=== PATIENT | male | born 1960 | race Caucasian/White ===

== ENCOUNTER 2017-06-06 12:21 | Observation (INO) | payer OTHER, MEDICAID ==
[2017-06-06] VITALS (7 sets, daily range): BP systolic 134–141; BP diastolic 75–86; PULSE 84–96; RESP 16–18; TEMP 98–98.2; O2SAT 95–99
[~2017-06-06 12:21] MED LIST changes: -FLUT1INH7 INH; -METH40TA PO; -PRED10 PO
[2017-06-06] MEDS ORDERED: METH40TA PO (12:48)
[2017-06-06] MEDS ORDERED: FLUT1INH7 INH (12:48)
[2017-06-06] MEDS ORDERED: PRED10 PO (12:48)
[2017-06-06] MEDS ORDERED: AZAT50 PO (12:48)
[2017-06-06 13:06] LABS: AUTOMATED NEUTROPHIL # 16.8 TH/MM3 (1.8-7.7); BASOPHIL % 0.2 % (0.0-2.0); EOSINOPHIL % 0.1 % (0.0-4.0); HEMOGLOBIN 14.5 GM/DL (13.0-17.0); LYMPH % 1.3 % (9.0-44.0); LYMPHOCYTE # 0.2 TH/MM3 (1.0-4.8); MEAN CELL VOLUME 89.9 FL (80.0-100.0); MEAN CORPUSCULAR HGB CONC 34.5 % (32.0-36.0); MEAN PLATELET VOLUME 9.2 FL (7.0-11.0); MONO % 6.5 % (0.0-8.0); MONOCYTE # 1.2 TH/MM3 (0-0.9); NEUT % 91.9 % (16.0-70.0); PLATELET COUNT 258 TH/MM3 (150-450); RED BLOOD COUNT 4.67 MIL/MM3 (4.50-5.90); RED CELL DISTRIBUTION WIDTH 14.1 % (11.6-17.2); WHITE BLOOD COUNT 18.3 TH/MM3 (4.0-11.0)
--- NOTE | 2017-06-06 13:20 | PD ---
HPI Chief Complaint: Medical Clearance Time Seen by Provider: 12:48 Travel History International Travel<30 days: No Contact w/Intl Traveler<30days: No Traveled to known affect area: No History of Present Illness HPI This is a 57-year-old male with a history of myasthenia gravis who presents today after he failed a outpatient swallowing study. The patient states that since last , he's been having difficulty swallowing. He states he saw his primary care physician who ordered a swallowing study at [facility]. He reports when he showed up there they sent him here for the study. The patient was unable to pass 2 of the swallowing studies and sent here for admission. The patient states that he was told he had aspirated. He states he' s had a cough and has not been feeling well. There's been no reported fevers, chills. There are no other complaints time my examination. PFSH Past Medical History Asthma: Yes Heart Rhythm Problems: No Cancer: No Cardiac Catheterization: No Cardiovascular Problems: Yes High Cholesterol: Yes Congestive Heart Failure: No COPD: Yes Cerebrovascular Accident: No Diabetes: No Diminished Hearing: Yes (BILATERAL) Genitourinary: No Headaches: No Heparin Induced Thrombocytopen: No Hypertension: Yes Immune Disorder: Yes (Myasthenia Gravis) Musculoskeletal: No Neurologic: Yes (MyAsthenia Gravis) Psychiatric: No Reproductive: No Respiratory: Yes (ASTHMA) Immunizations Current: Yes Migraines: No Seizures: No Past Surgical History Abdominal Surgery: Yes (COLOSTOMY AND REVERSAL ,hernia) Cardiac Surgery: No Coronary Artery Bypass Graft: No Ear Surgery: No Endocrine Surgery: No Eye Surgery: No Genitourinary Surgery: No Gynecologic Surgery: No Oral Surgery: No Thoracic Surgery: Yes (bronchoscopy) Tonsillectomy: Yes Other Surgery: Yes (UMBILICAL HERNIA REPAIR) Social History Alcohol Use: Yes (OCCASSIONALLY) Tobacco Use: No Substance Use: No Allergies-Medications (Allergen,Severity, Reaction): Coded Allergies: No Known Allergies (Verified Allergy, Unknown, 06/06/17) Reported Meds & Prescriptions Reported Meds & Active Scripts Active Reported Azathioprine 50 Mg Tab 50 Mg PO BID Hazardous agent use appropriate precautions for handling and disposal. Breo Ellipta Inh (Fluticasone/Vilanterol) 200-25 Mcg/Act Inh 1 Puff INH DAILY Use daily at the same time. Prednisone 10 Mg Tab 10 Mg PO BID Methadone (Methadone HCl) 40 Mg Tab 60 Mg PO TID Review of Systems Except as stated in HPI: all other systems reviewed are Neg General / Constitutional: No: Fever, Chills HENT: No: Headaches, Neck Pain Cardiovascular: No: Chest Pain or Discomfort, Palpitations Respiratory: Positive: Cough, No: Shortness of Breath, Wheezing Gastrointestinal: Positive: Dysphagia ( eating secondary to not swallowing well ), Other (difficulty), No: Nausea, Vomiting, Abdominal Pain Genitourinary: No: Frequency, Dysuria Musculoskeletal: Positive: Weakness, No: Pain Neurologic: Positive: Weakness (generalized), No: Headache, Change in Mentation Physical Exam Narrative GENERAL: Well developed well-nourished male in no acute respiratory distress. SKIN: Focused skin assessment warm/dry. HEAD: Atraumatic. Normocephalic. EYES: No scleral icterus. No injection or drainage. ENT: No nasal bleeding or discharge. Mucous membranes pink and moist. NECK: Trachea midline. Supple. CARDIOVASCULAR: Regular rate and rhythm. No murmur appreciated. RESPIRATORY: Coarse rhonchi in the bilateral lung carrillo. No obvious Rales appreciated. GASTROINTESTINAL: Abdomen soft, non-tender, nondistended. MUSCULOSKELETAL: No obvious deformities. No clubbing. No cyanosis. No edema. NEUROLOGICAL: Awake and alert. No obvious cranial nerve deficits. Motor grossly equal and within normal limits. Slurred speech secondary to his myasthenia gravis. Data Data Last Documented VS Vital Signs Date Time Temp Pulse Resp B/P (MAP) Pulse Ox O2 Delivery O2 Flow Rate FiO2 06/06/17 13:02 (96) 98 06/06/17 12:25 98.2 84 16 Orders Orders Complete Blood Count With Diff (06/06/17 12:48) Comprehensive Metabolic Panel (06/06/17 12:48) Urinalysis - C+S If Indicated (06/06/17 12:48) Chest, Pa & Lat (06/06/17 12:48) Iv Access Insert/Monitor (06/06/17 12:48) Ecg Monitoring (06/06/17 12:48) Oximetry (06/06/17 12:48) D5-1/2 Ns + Kcl 20 Meq Inj (D5-1/2 Ns + (06/06/17 15:15) Place In Observation (06/06/17 ) Vital Signs (Adult) Q4H (06/06/17 16:40) Activity Bed Rest With Brp (06/06/17 16:40) Bedside Glucose CHAD.CSUGAR (06/06/17 16:40) Appliance Tester / Telemetry .CONTINUOUS (06/06/17 16:40) Intake + Output CHAD.QSHIFT (06/06/17 16:40) Notify Dr: Other (06/06/17 16:40) Diet Npo (06/06/17 Dinner) Sodium Chlor 0.9% 1000 Ml Inj (Ns 1000 M (06/06/17 16:40) Sodium Chloride 0.9% Flush (Ns Flush) (06/06/17 16:45) Sodium Chloride 0.9% Flush (Ns Flush) (06/06/17 21:00) Acetaminophen (Tylenol) (06/06/17 16:45) Ondansetron Inj (Zofran Inj) (06/06/17 16:45) Basic Metabolic Panel (Bmp) (06/07/17 06:00) Complete Blood Count With Diff (06/07/17 06:00) Resp Oxygen Master C Titrat 1-4 L (06/06/17 ) Speech Therapy Consult-Eval/Tx (06/06/17 16:40) Case Management Consult (06/06/17 16:40) Heparin Inj (Heparin Inj) (06/06/17 18:00) Scd Bilateral/Knee High CHAD.BID (06/06/17 16:40) Naloxone Inj (Narcan Inj) (06/06/17 16:45) Docusate Sodium-Senna (Hawa-Colace) (06/06/17 21:00) Magnesium Hydroxide Liq (Milk Of Magnesi (06/06/17 16:45) Sennosides (Senokot) (06/06/17 16:45) Bisacodyl Supp (Dulcolax Supp) (06/06/17 16:45) Lactulose Liq (Lactulose Liq) (06/06/17 16:45) Consult Neurology (06/06/17 ) Methylprednisolone So Succ Inj (Solumedr (06/06/17 22:00) Azathioprine (Imuran) (06/06/17 21:00) Fluticasone-Vilant 200-25 Inh (Breo Anjana (06/07/17 09:00) (Hub Use Only)Inp Phy Cons/Ref (06/06/17 ) Labs Laboratory Tests Test 06/06/17 13:00 White Blood Count 18.3 TH/MM3 Red Blood Count 4.67 MIL/MM3 Hemoglobin 14.5 GM/DL Hematocrit 42.0 % Mean Corpuscular Volume 89.9 FL Mean Corpuscular Hemoglobin 31.0 PG Mean Corpuscular Hemoglobin Concent 34.5 % Red Cell Distribution Width 14.1 % Platelet Count 258 TH/MM3 Mean Platelet Volume 9.2 FL Neutrophils (%) (Auto) 91.9 % Lymphocytes (%) (Auto) 1.3 % Monocytes (%) (Auto) 6.5 % Eosinophils (%) (Auto) 0.1 % Basophils (%) (Auto) 0.2 % Neutrophils # (Auto) 16.8 TH/MM3 Lymphocytes # (Auto) 0.2 TH/MM3 Monocytes # (Auto) 1.2 TH/MM3 Eosinophils # (Auto) 0.0 TH/MM3 Basophils # (Auto) 0.0 TH/MM3 CBC Comment DIFF FINAL Differential Comment Blood Urea Nitrogen 15 MG/DL Creatinine 0.73 MG/DL Random Glucose 98 MG/DL Total Protein 7.4 GM/DL Albumin 3.6 GM/DL Calcium Level 9.2 MG/DL Alkaline Phosphatase 52 U/L Aspartate Amino Transf (AST/SGOT) 35 U/L Alanine Aminotransferase (ALT/SGPT) 43 U/L Total Bilirubin 0.9 MG/DL Sodium Level 141 MEQ/L Potassium Level 4.1 MEQ/L Chloride Level 107 MEQ/L Carbon Dioxide Level 28.9 MEQ/L Anion Gap 5 MEQ/L Estimat Glomerular Filtration Rate 110 ML/MIN [facility] Medical Decision Making Medical Screen Exam Complete: Yes Emergency Medical Condition: Yes Differential Diagnosis Aspiration pneumonia versus metabolic derangement versus exacerbation of myasthenia gravis Narrative Course 57-year-old male presents today with complaints of cough and congestion. The patient had an outpatient swallowing study that showed aspiration. The patient has myasthenia gravis. He states she's not been able to eat secondary to dysphagia for the last 5 days. There is no reported fevers, chills. There is cough and congestion. The patient has an elevated white blood cell count of above 18,000. Chest x-ray shows some nonspecific changes that could be consistent with aspiration. At this point I will not start him on antibiotics as if this is aspiration, it is likely secondary multi-organism etiology. Case was discussed with Dr. Pantoja, [facility] to see the patient and admit the patient to the service. Diagnosis Primary Impression: probable aspiration pneumonia Additional Impressions: leukocytosis with left shift Myasthenia gravis Dysphagia Admitting Information Admitting Physician Requests: Admit Carlos Colón MD Jun 06, 2017 13:20
[2017-06-06 13:37] LABS: ALKALINE PHOSPHATASE 52 U/L (45-117); ALT (GPT) 43 U/L (12-78); TOTAL BILIRUBIN ADULT 0.9 MG/DL (0.2-1.0); TOTAL PROTEIN 7.4 GM/DL (6.4-8.2)
[2017-06-06 13:42] LABS: ALBUMIN 3.6 GM/DL (3.4-5.0); AST (GOT) 35 U/L (15-37); BICARBONATE 28.9 MEQ/L (21.0-32.0); BLOOD UREA NITROGEN 15 MG/DL (7-18); CALCIUM 9.2 MG/DL (8.5-10.1); CHLORIDE 107 MEQ/L (98-107); CREATININE 0.73 MG/DL (0.60-1.30); GLOMERULAR FILTRATION RATE 110 ML/MIN (>89); GLUCOSE,RANDOM 98 MG/DL (74-106); SODIUM (NA) 141 MEQ/L (136-145)
[2017-06-06] MEDS ORDERED: D5-1/2 NS + KCL 20 MEQ INJ 1,000 ML IV SCH (15:15)
--- NOTE | 2017-06-06 15:55 | RADRPT ---
EXAM DATE/TIME: 06/06/2017 13:42 [facility] COMPARISON: CHEST SINGLE AP, February 26, 2016, 14:57. INDICATIONS : Evaluate lungs post aspiration of barium during modifed barium swallow performed earlier today MEDICAL HISTORY : Hypertension. Chronic obstructive pulmonary disease. SURGICAL HISTORY : Tonsillectomy. ENCOUNTER: Initial ACUITY: 1 day PAIN SCORE: Non-responsive. LOCATION: Bilateral chest FINDINGS: The heart is moderately enlarged. Mild central vascular engorgement is noted. There is no evidence of high density material in the lungs. There are no consolidating airspace lang es or significant congestion. CONCLUSION: No evidence of significant congestion or consolidating airspace disease. Cardiomegaly with mild chronic vascular prominence. Fox Ernandez MD on June 06, 2017 at 15:51 Board Certified Radiologist. This report was verified electronically.
[2017-06-06] MEDS ORDERED: SODIUM CHLOR 0.9% 1000 ML INJ 1,000 ML IV SCH (16:40)
[2017-06-06] MEDS ORDERED: NALOXONE HCL 0.4 MG/ML AMP IV PUSH PRN (16:45)
[2017-06-06] MEDS ORDERED: SODIUM CHLORIDE 0.9% FLUSH 10 ML FLUSH IV FLUSH PRN (16:45)
[2017-06-06] MEDS ORDERED: BISACODYL 10 MG SUPP RECTAL PRN (16:45)
[2017-06-06] MEDS ORDERED: ONDANSETRON HCL 4 MG/2 ML VIAL IVP PRN (16:45)
[2017-06-06] MEDS ORDERED: SENNOSIDES 8.6 MG TAB PO PRN (16:45)
[2017-06-06] MEDS ORDERED: LACTULOSE SYRUP 20 GM/30 ML CUP PO PRN (16:45)
[2017-06-06] MEDS ORDERED: MAGNESIUM HYDROXIDE SUSP 30 ML CUP PO PRN (16:45)
--- NOTE | 2017-06-06 18:23 | HHI.HP ---
HPI Service [facility] Primary Care Physician Luis Mai M.D. Admission Diagnosis Diagnoses: Chief Complaint: dysphagia Travel History International Travel<30 Days: No Contact w/Intl Traveler <30 Da: No Traveled to Known Affected Are: No History of Present Illness Written by Marivel Tavarez, acting as scribe for Dr. Pantoja on 06/06/17 at 18: 08. 57-year-old male with history of myasthenia gravis, asthma/COPD, chronic pain on methadone, chronic lower extremity edema, presents with dysphagia after failing an outpatient swallow study. The patient reports he was in his normal state of health up until last 06/01/17 when he started to notice more drooling, difficulty swallowing, left facial/eyelid droop, and slurred speech. He saw his primary care physician Dr. Mai who referred him for an outpatient swallow study at [place], and then was referred to [facility] today for repeat study. He failed both swallow study attempts. He was told that he had aspirated during the study. He denies any recent fevers/chills, chest pains , shortness of breath, abdominal pain, nausea/vomiting, or any other medical complaints. He has been compliant with his medications. He denies any recent illness. He states his myasthenia gravis has been fairly well controlled recently. His neurologist is Dr. Deleon. He has no other medical complaints to report at this time. Review of Systems Except as stated in HPI: all other systems reviewed are Neg Past Family Social History Past Medical History Myasthenia gravis Asthma/COPD Past Surgical History Colostomy placement and reversal Bronchoscopy Tonsillectomy Umbilical hernia repair Reported Medications Azathioprine 50 Mg Tab 50 Mg PO BID Hazardous agent use appropriate precautions for handling and disposal. Breo Ellipta Inh (Fluticasone/Vilanterol) 200-25 Mcg/Act Inh 1 Puff INH DAILY Use daily at the same time. Prednisone 10 Mg Tab 10 Mg PO BID Methadone (Methadone HCl) 40 Mg Tab 60 Mg PO TID Allergies: Coded Allergies: No Known Allergies (Verified Allergy, Unknown, 06/06/17) Active Ordered Medications Current Medications Medications (Trade) Dose Ordered Sig/Bianka Route Start Time Stop Time Status Last Admin Sodium Chloride 1,000 ml @ 100 mls/hr Q10H IV 06/06/17 16:40 (NS Flush) 2 ml UNSCH PRN IV FLUSH 06/06/17 16:45 (NS Flush) 2 ml BID IV FLUSH 06/06/17 21:00 (Tylenol) 650 mg Q4H PRN PO 06/06/17 16:45 (Zofran Inj) 4 mg Q6H PRN IVP 06/06/17 16:45 (Heparin Inj) 5,000 units Q8H SQ 06/06/17 18:00 (Narcan Inj) 0.4 mg UNSCH PRN IV PUSH 06/06/17 16:45 (Hawa-Colace) 1 tab BID PO 06/06/17 21:00 (Milk Of Magnesia Liq) 30 ml Q12H PRN PO 06/06/17 16:45 (Senokot) 17.2 mg Q12H PRN PO 06/06/17 16:45 (Dulcolax Supp) 10 mg DAILY PRN RECTAL 06/06/17 16:45 (Lactulose Liq) 30 ml DAILY PRN PO 06/06/17 16:45 (SoluMEDROL INJ) 40 mg Q8HR IV PUSH 06/06/17 22:00 (Imuran) 50 mg BID PO 06/06/17 21:00 (Breo Ellipta 200-25 Inh) 1 puff DAILY INH 06/07/17 09:00 Family History Mother with colon cancer, Father with dementia, Social History Denies any prior tobacco use Quit drinking alcohol in 2006, previously heavy alcohol use with 3-4 "Geovani Triples" nightly Remote history of marijuana use 30-40 years ago, no recent illicit drug use Physical Exam Vital Signs Vital Signs Date Time Temp Pulse Resp B/P (MAP) Pulse Ox O2 Delivery O2 Flow Rate FiO2 06/06/17 17:01 97 21 06/06/17 13:02 (96) 98 06/06/17 12:25 98.2 84 16 134/77 (96) 99 Physical Exam GENERAL: Well-nourished, well-developed middle-aged male patient in NAD. Hard of hearing. SKIN: Warm and dry. No rash. HEAD: Normocephalic. Atraumatic. EYES: Pupils equal and round. No scleral icterus. No injection or drainage. ENT: No nasal bleeding or discharge. Mucous membranes pink and moist. NECK: Supple. Trachea midline. CARDIOVASCULAR: Regular rate and rhythm. S1, S2 noted. No murmur appreciated. RESPIRATORY: No accessory muscle use. Bibasilar crackles. Breath sounds equal bilaterally. GASTROINTESTINAL: Abdomen soft, non-tender, nondistended. Normoactive bowel sounds x4. MUSCULOSKELETAL: No obvious deformities. Bilateral chronic stasis dermatitis with 2+ pitting edema, left slightly worse than the right. NEUROLOGICAL: Awake and alert. No obvious cranial nerve deficits. Motor grossly within normal limits. Left eyelid/facial droop. Slurred speech. PSYCHIATRIC: Appropriate mood and affect; insight and judgment normal. Laboratory Laboratory Tests Test 06/06/17 13:00 White Blood Count 18.3 Red Blood Count 4.67 Hemoglobin 14.5 Hematocrit 42.0 Mean Corpuscular Volume 89.9 Mean Corpuscular Hemoglobin 31.0 Mean Corpuscular Hemoglobin Concent 34.5 Red Cell Distribution Width 14.1 Platelet Count 258 Mean Platelet Volume 9.2 Neutrophils (%) (Auto) 91.9 Lymphocytes (%) (Auto) 1.3 Monocytes (%) (Auto) 6.5 Eosinophils (%) (Auto) 0.1 Basophils (%) (Auto) 0.2 Neutrophils # (Auto) 16.8 Lymphocytes # (Auto) 0.2 Monocytes # (Auto) 1.2 Eosinophils # (Auto) 0.0 Basophils # (Auto) 0.0 CBC Comment DIFF FINAL Differential Comment Blood Urea Nitrogen 15 Creatinine 0.73 Random Glucose 98 Total Protein 7.4 Albumin 3.6 Calcium Level 9.2 Alkaline Phosphatase 52 Aspartate Amino Transf (AST/SGOT) 35 Alanine Aminotransferase (ALT/SGPT) 43 Total Bilirubin 0.9 Sodium Level 141 Potassium Level 4.1 Chloride Level 107 Carbon Dioxide Level 28.9 Anion Gap 5 Estimat Glomerular Filtration Rate 110 Result Diagram: 06/06/17 1300 06/06/17 1300 Imaging Last Impressions Chest X-Ray 06/06/17 1248 Signed Impressions: Service Date/Time: Tuesday, June 06, 2017 13:42 - CONCLUSION: No evidence of significant congestion or consolidating airspace disease. Cardiomegaly with mild chronic vascular prominence. Fox F. Awais, MD Caprini VTE Risk Assessment Caprini VTE Risk Assessment: Mod/High Risk (score >= 2) Caprini Risk Assessment Model Point Value = 1 Point Value = 2 Point Value = 3 Point Value = 5 Age 41-60 Minor surgery BMI > 25 kg/m2 Swollen legs Varicose veins or History of unexplained or recurrent spontaneous Oral contraceptives or hormone replacement Sepsis (< 1 month) Serious lung disease, including pneumonia (< 1 month) Abnormal pulmonary function Acute myocardial infarction Congestive heart failure (< 1 month) History of inflammatory bowel disease Medical patient at bed rest Age 61-74 Arthroscopic surgery Major open surgery (> 45 min) Laparoscopic surgery (> 45 min) Malignancy Confined to bed (> 72 hours) Immobilizing plaster cast Central venous access Age >= 75 History of VTE Family history of VTE Factor V Leiden Prothrombin [id number] Lupus anticoagulant Anticardiolipin antibodies Elevated serum homocysteine Heparin-induced thrombocytopenia Other congenital or acquired thrombophilia Stroke (< 1 month) Elective arthroplasty Hip, pelvis, or leg fracture Acute spinal cord injury (< 1 month) Prophylaxis Regimen Total Risk Factor Score Risk Level Prophylaxis Regimen 0-1 Low Early ambulation 2 Moderate Order ONE of the following: *Sequential Compression Device (SCD) *Heparin 5000 units SQ BID 3-4 Higher Order ONE of the following medications: *Heparin 5000 units SQ TID *Enoxaparin/Lovenox 40 mg SQ daily (WT < 150 kg, CrCl > 30 mL/min) *Enoxaparin/Lovenox 30 mg SQ daily (WT < 150 kg, CrCl > 10-29 mL/min) *Enoxaparin/Lovenox 30 mg SQ BID (WT < 150 kg, CrCl > 30 mL/min) AND/OR *Sequential Compression Device (SCD) 5 or more Highest Order ONE of the following medications: *Heparin 5000 units SQ TID (Preferred with Epidurals) *Enoxaparin/Lovenox 40 mg SQ daily (WT < 150 kg, CrCl > 30 mL/min) *Enoxaparin/Lovenox 30 mg SQ daily (WT < 150 kg, CrCl > 10-29 mL/min) *Enoxaparin/Lovenox 30 mg SQ BID (WT < 150 kg, CrCl > 30 mL/min) AND *Sequential Compression Device (SCD) Assessment and Plan Problem List: (1) Myasthenia gravis ICD Code: G70.00 - Myasthenia gravis without (acute) exacerbation Status: Acute (2) Dysphagia ICD Code: R13.10 - Dysphagia, unspecified Status: Acute Assessment and Plan 57-year-old male with history of myasthenia gravis, asthma/COPD, chronic pain on methadone, chronic lower extremity edema, presents with dysphagia after failing an outpatient swallow study. Dysphagia, possible early Aspiration Pneumonia: Suspect secondary to myasthenia gravis flare. Patient sent to the hospital after failing 2 outpatient swallow studies with reported aspiration. +leukocytosis WBC 18.3K however noted patient is also on steroids at home. Chest Xray images reviewed, no acute findings. -Keep NPO for now -Consult speech therapy -Give supportive treatment with IV fluid hydration with D5 1/2 NS with KCl at 40cc/hr -Start on IV Zosyn to cover for possible aspiration pneumonia -Repeat CXR in the am Myasthenia Gravis Flare: patient with slurred speech, left facial droop, drooling, dysphagia. Symptoms started 06/01. -change patient's po prednisone to IV Solumedrol for now while NPO -unable to restart patient's azathioprine while NPO -Consult neurology, patient is known to Dr. Deleon -Consult PT/OT/ST Chronic Venous Stasis Dermatitis/Edema: patient denies any history of CHF. -elevate legs -caution with IV fluids Asthma/COPD: chronic, does not appear to be in exacerbation. Stable on room air. -duonebs prn DVT Prophylaxis: Heparin sq Discussed Condition With Patient, Dr. Colón This note was transcribed by scribe [Marivel Tavarez.]. I, Dr. Varinder Pantoja personally performed the history, physical exam, and medical decision making; and confirmed the accuracy of the information in the transcribed note. Authenticated by Dr. Varinder Pantoja on 06/06/17 at 18:18 Marivel Tavarez PA-C Jun 06, 2017 18:23 Varinder Pantoja MD Jun 07, 2017 09:02
[2017-06-06] MEDS: D5-1/2 NS + KCL 10 MEQ INJ 1,000 ML IV SCH (18:29)
[2017-06-06] MEDS ORDERED: RESP: ALBUTEROL 2.5 MG/IPRATROPIUM 0.5 MG NEB (PRN) NEB (18:30)
[2017-06-06] MEDS: DOCUSATE SODIUM 50 MG/SENNA 8.6 MG TAB PO SCH (20:37)
[2017-06-06] MEDS: PIPERACIL-TAZO 4.5 GM PREMIX 100 ML IV SCH (20:38)
[2017-06-06] MEDS: HEPARIN SODIUM - SQ 10,000 UNITS/ML VIAL SQ SCH (20:39)
[2017-06-06] MEDS: azaTHIOprine 50 MG TAB PO SCH (20:44)
[2017-06-06] MEDS: SODIUM CHLORIDE 0.9% FLUSH 10 ML FLUSH IV FLUSH SCH (20:46)
[2017-06-06] MEDS: methylPREDNISolone SOD SUCC 40 MG/1 ML VIAL IV PUSH SCH (20:46)
[2017-06-07] VITALS (7 sets, daily range): BP systolic 123–138; BP diastolic 67–81; PULSE 73–92; RESP 15–18; TEMP 95.4–97.8; O2SAT 90–99
[2017-06-07] MEDS: PIPERACIL-TAZO 4.5 GM PREMIX 100 ML IV SCH ×4 (02:50→21:46)
[2017-06-07] MEDS: HEPARIN SODIUM - SQ 10,000 UNITS/ML VIAL SQ SCH (02:53)
[2017-06-07 03:10] LABS: BILIRUBIN, URINE NEG (NEG); BLOOD, URINE NEG (NEG); GLUCOSE,URINE NEG (NEG); KETONE, URINE 10 mg/dL (NEG); MUCUS URINE FEW /lpf (OCC); NITRITE,URINE NEG (NEG); PH, URINE 6.5 (5.0-8.5); URINE COLOR YELLOW (YELLW/STRAW); URINE LEUKOCYTE ESTERASE NEG (NEG)
[2017-06-07] MEDS: methylPREDNISolone SOD SUCC 40 MG/1 ML VIAL IV PUSH SCH ×3 (05:28→21:45)
--- NOTE | 2017-06-07 08:39 | MB ---
cc: MADALYN KIRK DATE OF CONSULTATION 06/07/2017 REASON FOR CONSULTATION This is a 57-year-old man with a strong history of myasthenia gravis who since last has gotten worse. He says he usually talks well without ptosis. He has been on prednisone 10 b.i.d., Mestinon 60 t.i.d. and Imuran [address] Deleon. He denies any fever, but his swallowing has gotten worse and his ptosis worse and unable to talk properly and thus admitted to the hospital. He was just admitted yesterday from the ER, failed an outpatient swallow study. Evidently had a recent swallow study and aspirated. MEDICATIONS AT HOME 1. Imuran 50 b.i.d. 2. Some inhalers 3. Prednisone 10 b.i.d. 4. Mestinon 60 t.i.d. PAST MEDICAL HISTORY 1. The myasthenia which may be a lifelong according to past Notes. 2. Asthma 3. COPD 4. Chronic pain on methadone 5. Chronic lower extremity edema 6. Colostomy replacement reversal. 7. Tonsillectomy 8. Evidently is on methadone at home. 9. History of diabetes with a pump. 10. CHF 11. Some anterior mediastinal mass x one CT in the past. CURRENT MEDICATIONS He is on: 1. An inhaler Solu-Medrol 40 q8 2. Imuran 50 b.i.d. 3. Piperacillin 4. DuoNeb 5. Subcu heparin REVIEW OF SYSTEMS Difficulty swallowing. PHYSICAL EXAM On exam, afebrile 84, 18, 129/72. It is really hard to get a history. He is hard to understand. Speech is slurred, very dysarthric. There were no carotid bruits. HEART: Regular rhythm. I did not detect a murmur. NEUROLOGIC: Pupils are equal. Visual carrillo are full. Face is symmetric. He has weakness and eye closure, extremely weak hardly able to keep his eyes closed with effort. He has a severe ptosis on the left. Buccal muscles were weak also. Deltoids had normal strength on repetitive testing and strength in the bilateral upper and lower extremities were normal on repetitive testing except the right finger extensors were about 4+/5. DTRs are trace throughout. Pinprick was intact throughout. He does not appear particularly short of breath per say. LABORATORY DATA His white count 18,000 otherwise normal. CBC, sed rate in the past has been normal. Hepatitis screen, RPR, rheumatoid factor, ISI has been normal in the past. Anti-striatal muscle antibody was normal in the past in 2006. Urine drug screens been negative in the past. UA on this admissions normal. Basic metabolic profile on this admission is normal. LFTs are normal. Albumin is 3.6. His B12 has been low in the past 277 in 2008. TSH was normal a year ago. Folate has been normal in the past. LDL cholesterol as been high in the past. Troponin was negative a year ago. CRP was essentially normal in 2013. CPKs were normal in the past, last about a year ago. His GFR is normal. Coags are normal. He had a blood gas done last in 2008, those were normal. He had an acetylcholine receptor binding antibody that was slightly elevated at 3.5 back in 2004. In 2008, his acetylcholine receptor binding antibody was greater than 7.5 which was quite elevated. The same thing in 2006. Normal is less than 0.25. His chest x-ray shows cardiomegaly, otherwise normal. Barium swallow moderate penetration and aspiration on thin and thick liquids. He had a brain MRI in 2006 that was normal. He had a chest CT in 2008. Diffuse hepatic fatty infiltrate. No mention of a mass was noted. A chest CT in 2006 showed some abnormal soft tissues in the mediastinum. He had an echocardiogram done in 2008. It was a poor study. Left atrial size was 42. Ejection fraction only 30%. IMPRESSION Myasthenia gravis with worsening exacerbation here. He will need an NG tube placed and some Mestinon put down along with plasma exchange. I would recheck an echo to see what his ejection fraction is and have hematology see him to get him started on plasma exchange. We will recheck his B12 with a low level in the past and a methylmalonic acid. We will hold the heparin for now with a vas cath placement. MD WOOD Mauro/MORALES /7:45 AM /8:06 AM
[2017-06-07] MEDS: FLUTICASONE 200 MCG/VILANTEROL 25 MCG INHALER INH SCH ×2 (09:00→10:53)
[2017-06-07] MEDS: SODIUM CHLOR 0.45% 1000 ML INJ 1,000 ML IV SCH ×2 (09:00→22:20)
[2017-06-07] MEDS: SODIUM CHLORIDE 0.9% FLUSH 10 ML FLUSH IV FLUSH SCH ×2 (09:06→21:48)
[2017-06-07 10:04] LABS: AUTOMATED NEUTROPHIL # 8.1 TH/MM3 (1.8-7.7); BASOPHIL % 0.4 % (0.0-2.0); HEMATOCRIT 42.9 % (39.0-51.0); HEMOGLOBIN 14.6 GM/DL (13.0-17.0); LYMPH % 1.2 % (9.0-44.0); LYMPHOCYTE # 0.1 TH/MM3 (1.0-4.8); MEAN CELL VOLUME 90.5 FL (80.0-100.0); MEAN CORPUSCULAR HEMOGLOBIN 30.8 PG (27.0-34.0); MEAN PLATELET VOLUME 9.3 FL (7.0-11.0); MONO % 1.4 % (0.0-8.0); MONOCYTE # 0.1 TH/MM3 (0-0.9); PLATELET COUNT 249 TH/MM3 (150-450); RED BLOOD COUNT 4.74 MIL/MM3 (4.50-5.90); RED CELL DISTRIBUTION WIDTH 13.9 % (11.6-17.2); WHITE BLOOD COUNT 8.4 TH/MM3 (4.0-11.0)
[2017-06-07 10:37] LABS: BICARBONATE 26.7 MEQ/L (21.0-32.0); CREATININE 0.69 MG/DL (0.60-1.30)
[2017-06-07] MEDS: DOCUSATE SODIUM 50 MG/SENNA 8.6 MG TAB PO SCH ×2 (10:54→21:00)
[2017-06-07] MEDS ORDERED: LIDOCAINE 1%/EPINEPHrine 1:100,000 SOLN 20 ML VIAL ONE (10:55)
[2017-06-07] MEDS: azaTHIOprine 50 MG TAB PO SCH ×2 (10:55→21:56)
[2017-06-07] MEDS: PYRIDOSTIGMINE BROMIDE 60 MG TAB NG SCH ×3 (10:55→21:46)
--- NOTE | 2017-06-07 10:55 | RADRPT ---
EXAM DATE/TIME: 06/07/2017 09:51 [facility] COMPARISON: No previous studies available for comparison. INDICATIONS : Evaluate NG tube placement. MEDICAL HISTORY : Hypertension. Chronic obstructive pulmonary disease. SURGICAL HISTORY : Tonsillectomy. ENCOUNTER: Initial ACUITY: 1 day PAIN SCORE: 0/10 LOCATION: Bilateral abdomen FINDINGS: Nasogastric tube is noted in place. Distal tip appears to be within the antrum or duodenal bulb. CONCLUSION: Nasogastric tube appears to be either in the distal antrum or duodenal bulb region. Fox Ernandez MD on June 07, 2017 at 10:37 Board Certified Radiologist. This report was verified electronically.
--- NOTE | 2017-06-07 10:57 | RADRPT ---
EXAM DATE/TIME: 06/07/2017 09:55 [facility] COMPARISON: CHEST PA & LAT, June 06, 2017, 13:42. INDICATIONS : Shortness of breath. MEDICAL HISTORY : Hypertension. Chronic obstructive pulmonary disease. SURGICAL HISTORY : Tonsillectomy. ENCOUNTER: Initial ACUITY: 1 day PAIN SCORE: 0/10 LOCATION: Bilateral chest FINDINGS: Nasogastric tube is in place. The lungs remain hypoaerated with mild vascular congestion. Minimal air space disease is developed in the left base. Heart and mediastinal structures are stable. CONCLUSION: Hypoaerated lungs with mild vascular congestion and minimal left basilar airspace disease. Nasogastric tube in place. Fox Ernandez MD on June 07, 2017 at 10:54 Board Certified Radiologist. This report was verified electronically.
--- NOTE | 2017-06-07 12:28 | PD.RAD ---
Post Procedure Progress Note Pre Procedure Diagnosis: (1) Myasthenia gravis Post Procedure Diagnosis: (1) Myasthenia gravis Procedure Date: Jun 07, 2017 Supervising Radiologist: Fidencio Bernal Proceduralist/Assist: RT Amauri(R) Anesthesia: Local Plan of Activity Patient to Unit: ROPU Patient Condition: Good See PACS Report for procedural detail/treatment Central Venous Access Device Procedure 1 Right Internal Jugular Hemodialysis Catheter Non-Tunneled Placement dual lumen Latvian: 14 Additional Detail: 15[facility] Hospital[facility] Erwin MD Jun 07, 2017 12:28
[2017-06-07] MEDS ORDERED: SODIUM CHLORIDE 0.9% FLUSH 10 ML FLUSH IV FLUSH PRN (12:30)
[2017-06-07] MEDS ORDERED: HEPARIN SODIUM - IV 2,000 UNITS/2 ML VIAL IV FLUSH PRN (12:30)
--- NOTE | 2017-06-07 12:51 | RADRPT ---
EXAM DATE/TIME: 06/07/2017 10:56 [facility] COMPARISON: No previous studies available for comparison. INDICATIONS : Patient presents with myasthenia gravis in need of non tunneled dialysis catheter for plasma phoresis . MEDICAL HISTORY : Myasthenia gravis Asthma COPD SURGICAL HISTORY : Colostomy placement and reversal Bronchoscopy Tonsillectomy Umbilical hernia repair ENCOUNTER: Initial ACUITY: 1 day PAIN SCORE: 0/10 LOCATION: N/A FLUORO TIME: 0.7 minutes IMAGE SERIES: 0 ACCESS: Right internal jugular vein DEVICE(S): 1.) 14 [place] dual lumen 15 cm Vas Cath Schon XL PROCEDURE : 1. Ultrasound guided venipuncture. 2. Fluoroscopic guidance. 3. Central line placement. The risks, benefits and alternatives to the procedure were explained and verbal and written consent w as obtained. The site was prepped in sterile fashion. Full sterile technique was used, including ca p, mask, sterile gloves and gown and a large sterile sheet. Hand hygiene and 2% chlorhexidine prep w as utilized per protocol for cutaneous antisepsis with appropriate dry time for site. Sterile gel an d sterile probe cover were utilized for ultrasound guidance. The skin and subcutaneous tissues were infiltrated with local anesthetic solution. A suitable site a mikayla the vein was selected with ultrasound and fluoroscopic guidance. A small incision was made. Th e vein was accessed under direct ultrasound visualization using the micropuncture technique. The rajinder ropuncture set was exchanged for a 0.035 wire. The tract was dilated. The catheter was advanced int o position under direct fluoroscopic visualization. The catheter was fixed in place with suture and a sterile dressing was applied. The patient tolerated the procedure well and there were no complications. CONCLUSION: Uncomplicated line placement as above. Fidencio Bernal MD on June 07, 2017 at 12:49 Board Certified Radiologist. This report was verified electronically.
[2017-06-07] MEDS ORDERED: diphenhydrAMINE HCL 50 MG/ML VIAL IV PUSH PRN (13:15)
[2017-06-07] MEDS ORDERED: ANTICOAGULANT CITRATE DEXTROSE SOLN-A 1L OTHER ONE (13:15)
[2017-06-07] MEDS ORDERED: ALBUMIN 5% IV ONE (13:15)
[2017-06-07] MEDS ORDERED: CALCIUM GLUCONATE INJ 4 GM in SODIUM CHLOR 0.9% 250 ML INJ 200 ML IV ONE (13:15)
[2017-06-07] MEDS ORDERED: SODIUM CHLOR 0.9% 1000 ML IV ONE (13:15)
[2017-06-07] MEDS ORDERED: HEPARIN SODIUM - 1000 UNITS/ML 10 ML VIAL IV FLUSH PRN (13:15)
[2017-06-07 15:31] LABS: INTERNATIONAL NORMALIZED RATIO 1.1 RATIO; PROTHROMBIN TIME - PATIENT 11.1 SEC (9.8-11.6)
[2017-06-07 16:01] LABS: FREE T4 1.32 NG/DL (0.76-1.46)
--- NOTE | 2017-06-07 16:14 | HHI.PR ---
Subjective Remarks Patient had a Vas-Cath today for plasmapheresis, doing well, NG tube inserted, he looks pleasant making jokes, poor historian in general due to his speech Objective Vitals Vital Signs Date Time Temp Pulse Resp B/P (MAP) Pulse Ox O2 Delivery O2 Flow Rate FiO2 06/07/17 13:20 92 06/07/17 13:00 96.6 79 18 131/72 (91) 90 06/07/17 08:00 97.7 92 17 123/67 (85) 92 06/07/17 08:00 90 06/07/17 04:34 97.8 84 18 129/72 (91) 99 06/07/17 00:00 97.8 92 18 132/81 (98) 93 06/06/17 21:11 85 06/06/17 20:03 95 21 06/06/17 20:00 98.0 96 18 141/86 (104) 95 06/06/17 18:37 (95) 21 06/06/17 18:05 91 18 137/75 (95) 95 Room Air 06/06/17 17:01 97 21 I/O 06/06/17 06/06/17 06/06/17 06/07/17 06/07/17 06/07/17 07:00 15:00 23:00 07:00 15:00 23:00 Intake Total 320 ml 100 ml Output Total 750 ml Balance 320 ml -650 ml Intake IV Total 320 ml 100 ml Output Urine Total 750 ml Result Diagram: 06/07/17 0930 06/07/17 0820 Objective Remarks GENERAL: Well-nourished, well-developed middle-aged male patient in NAD. Hard of hearing. SKIN: Warm and dry. No rash. HEAD: Normocephalic. Atraumatic. EYES: Pupils equal and round. No scleral icterus. No injection or drainage. ENT: No nasal bleeding or discharge. Mucous membranes pink and moist. NECK: Supple. Trachea midline. CARDIOVASCULAR: Regular rate and rhythm. S1, S2 noted. No murmur appreciated. RESPIRATORY: No accessory muscle use. Bibasilar crackles. Breath sounds equal bilaterally. GASTROINTESTINAL: Abdomen soft, non-tender, nondistended. Normoactive bowel sounds x4. MUSCULOSKELETAL: No obvious deformities. Bilateral chronic stasis dermatitis with 2+ pitting edema, left slightly worse than the right. NEUROLOGICAL: Awake and alert. No obvious cranial nerve deficits. Motor grossly within normal limits. Left eyelid/facial droop. Slurred speech. PSYCHIATRIC: Appropriate mood and affect; insight and judgment normal. A/P Problem List: (1) Myasthenia gravis ICD Code: G70.00 - Myasthenia gravis without (acute) exacerbation Status: Acute (2) Dysphagia ICD Code: R13.10 - Dysphagia, unspecified Status: Acute Assessment and Plan 57-year-old male with history of myasthenia gravis, asthma/COPD, chronic pain on methadone, chronic lower extremity edema, presents with dysphagia after failing an outpatient swallow study. Dysphagia, possible early Aspiration Pneumonia: Suspect secondary to myasthenia gravis flare. Patient sent to the hospital after failing 2 outpatient swallow studies with reported aspiration. +leukocytosis WBC 18.3K however noted patient is also on steroids at home. Chest Xray images reviewed, no acute findings. -Keep NPO for now -Consult speech therapy -Give supportive treatment with IV fluid hydration with D5 1/2 NS with KCl at 40cc/hr -Start on IV Zosyn to cover for possible aspiration pneumonia -Repeat CXR in the am Myasthenia Gravis Flare: patient with slurred speech, left facial droop, drooling, dysphagia. Symptoms started 06/01. -change patient's po prednisone to IV Solumedrol for now while NPO -unable to restart patient's azathioprine while NPO -Appreciate neurology consultation, recommended hematology consult, Vas-Cath starting plasmapheresis, NG tube inserted -Consult PT/OT/ST Chronic Venous Stasis Dermatitis/Edema: patient denies any history of CHF. -elevate legs -caution with IV fluids Asthma/COPD: chronic, does not appear to be in exacerbation. Stable on room air. -duonebs prn DVT Prophylaxis: Heparin sq Varinder Pantoja MD Jun 07, 2017 16:14
[2017-06-07] MEDS: D5-1/2 NS + KCL 10 MEQ INJ 1,000 ML IV SCH (18:15)
--- NOTE | 2017-06-07 22:37 | MB ---
cc: MADALYN GRIFFIN M.D., RUBY ANNE E. M.D. DATE OF CONSULTATION 06/07/2017 Oncology new patient consultative summary DATE OF [address] Madalyn Griffin CHIEF COMPLAINT Dr. Griffin requested consultation for Mr. Pace with myasthenia gravis exacerbation needing pheresis. HISTORY OF PRESENT ILLNESS Mr. Pace is a 57-year-old man with long history of myasthenia gravis, well-known patient to Dr. Deleon and Dr. Griffin. He was initially diagnosed in 2006. He describes having of pheresis before a long time ago. He has had stable disease and has not required any pheresis. He has been on multiple therapies for his myasthenia gravis. He has been on prednisone, Mestinon, Imuran and pheresis in the past. He presented with acute worsening over a short period of time with dysphasia, left eye ptosis. He was initially evaluated by his primary physician who sent him for a swallowing study which he failed. He was then referred to the emergency room where he was subsequently admitted. He was seen by neurology, Dr. Griffin who advised plasma exchange. He has had his pheresis catheter placed by interventional radiology and NG tube placed for his Mestinon. He reports feeling better. He denies any problems associated with the plasmapheresis. He had 1+ volume exchange today. The procedure went uneventfully well. He denies any fevers or chills or night sweats. Denies any headaches. He has ptosis of the left eye. He was speaking better but gradually became incomprehensible. He fatigued during the short time of our conversation. He denies any other bowel or bladder problems. Rest of his review of systems is negative. PAST MEDICAL HISTORY 1. Myasthenia gravis. 2. Asthma. 3. COPD. 4. Chronic pain. 5. Chronic edema. 6. Congestive heart failure. 7. Diabetes. 8. Anterior mediastinal mass. PAST SURGICAL HISTORY 1. Colostomy placement and reversal. 2. Diabetes, insulin pump. 3. Pheresis catheter placement. 4. Hernia repair. 5. Bronchoscopy. SOCIAL HISTORY Drinks alcohol occasionally. Denies any tobacco or illicit drug use. ALLERGIES NO KNOWN DRUG ALLERGIES. FAMILY HISTORY Suggest a family history of myasthenia gravis which skips a generation. MEDICATIONS Current medications: 1. Breo Ellipta. 2. Mestinon. 3. Solu-Medrol. 4. Hawa-Colace. 5. Imuran. 6. Piperacillin tazobactam. 7. Duonebs. PHYSICAL EXAMINATION VITAL SIGNS: Temperature 96.9, heart rate 79, respiratory rate 18, blood pressure 131/72, saturation 90%. GENERAL: Mr. Pace is a well-developed, well-nourished man who looks older than stated age. HEENT: He has left eye ptosis. His sclerae is injected. Oropharynx is moist. His tongue is protruding. NG tube is in place in the left nostril. NECK: Supple with no adenopathy. Right neck pheresis catheter in place. LUNGS: Diminished breath sounds throughout. CARDIOVASCULAR: Exam reveals normal rate, rhythm. ABDOMEN: Benign. EXTREMITIES: Lower extremities with trace edema, chronic venous changes. LABORATORY DATA CBC is normal. Basic metabolic panel was normal. Calcium is normal. B12 level was normal. ASSESSMENT/PLAN Mr. Pace is a 57-year-old man with multiple medical problems described above. He has myasthenia gravis exacerbation. Hematology/Oncology is consulted for plasmapheresis. I discussed at length with Mr. Pace the risk and benefits of plasmapheresis. He continues on his other immunosuppressive medications and treatment for myasthenia gravis per neurology, Dr. Griffin. Pheresis will continue every other day. His next treatment will be on Monday. Depending on his response, will proceed with pheresis until he is ready be discharged and pheresis can continue on outpatient basis. He asked when the NG tube can be removed. Pheresis continue depends on his response and I will defer that to neurology. No signs of anemia. He tolerated pheresis well. MD SANTANA Feldman/KALEB /7:23 PM /10:14 PM MTDJoseph
[2017-06-08] VITALS (7 sets, daily range): BP systolic 133–157; BP diastolic 68–85; PULSE 73–94; RESP 16–20; TEMP 95.7–97.4; O2SAT 91–98
[2017-06-08] MEDS: PYRIDOSTIGMINE BROMIDE 60 MG TAB NG SCH ×4 (05:06→20:36)
[2017-06-08] MEDS: SODIUM CHLORIDE 0.9% 10 ML FLUSH IV FLUSH PRN (05:06)
[2017-06-08] MEDS: PIPERACIL-TAZO 4.5 GM PREMIX 100 ML IV SCH ×4 (05:06→20:36)
[2017-06-08] MEDS: methylPREDNISolone SOD SUCC 40 MG/1 ML VIAL IV PUSH SCH (05:24)
[2017-06-08 05:37] LABS: AUTOMATED NEUTROPHIL # 11.5 TH/MM3 (1.8-7.7); BASOPHIL # 0.1 TH/MM3 (0-0.2); BASOPHIL % 0.9 % (0.0-2.0); EOSINOPHIL % 0.1 % (0.0-4.0); HEMATOCRIT 42.7 % (39.0-51.0); HEMOGLOBIN 14.3 GM/DL (13.0-17.0); LYMPH % 3.3 % (9.0-44.0); LYMPHOCYTE # 0.4 TH/MM3 (1.0-4.8); MEAN CELL VOLUME 90.6 FL (80.0-100.0); MEAN CORPUSCULAR HEMOGLOBIN 30.4 PG (27.0-34.0); MEAN CORPUSCULAR HGB CONC 33.5 % (32.0-36.0); MONO % 5.5 % (0.0-8.0); MONOCYTE # 0.7 TH/MM3 (0-0.9); NEUT % 90.2 % (16.0-70.0); PLATELET COUNT 267 TH/MM3 (150-450); RED BLOOD COUNT 4.71 MIL/MM3 (4.50-5.90); WHITE BLOOD COUNT 12.7 TH/MM3 (4.0-11.0)
--- NOTE | 2017-06-08 07:21 | HHI.PR ---
Subjective Remarks sr Objective Vital Signs Date Time Temp Pulse Resp B/P (MAP) Pulse Ox O2 Delivery O2 Flow Rate FiO2 06/08/17 04:00 97.4 85 20 152/78 (102) 94 06/08/17 00:00 97.2 77 20 152/68 (96) 92 06/07/17 20:00 95.4 73 15 138/73 (94) 94 06/07/17 17:37 92 21 06/07/17 13:20 92 06/07/17 13:00 96.6 79 18 131/72 (91) 90 06/07/17 08:00 97.7 92 17 123/67 (85) 92 06/07/17 08:00 90 I/O 06/07/17 06/07/17 06/07/17 06/08/17 06/08/17 06/08/17 07:00 15:00 23:00 07:00 15:00 23:00 Intake Total 100 ml 100 ml 100 ml Output Total 750 ml 525 ml 400 ml Balance -650 ml -425 ml -300 ml Intake Oral 0 ml IV Total 100 ml 100 ml 100 ml Output Urine Total 750 ml 525 ml 400 ml # Bowel Movements 0 Result Diagram: 06/08/17 0525 06/07/17 0820 Objective Remarks speech still very slurred a lot of oral secretions denies sob facial mm stil very weak Assessment and Plan Assessment and Plan imp mg cont pred and immuran and pex #2 in am inc mestinon and cxr ? chf i dced ivf and ask med team to do tube feeds today echo pend labs ok Moose Griffin MD Jun 08, 2017 07:21
[2017-06-08] MEDS ORDERED: PILL SPLITTER OTHER PRN (07:45)
[2017-06-08] MEDS: azaTHIOprine 50 MG TAB PO SCH ×2 (08:10→20:37)
[2017-06-08] MEDS: predniSONE 10 MG TAB PO SCH ×2 (08:10→20:37)
[2017-06-08] MEDS: DOCUSATE SODIUM 50 MG/SENNA 8.6 MG TAB PO SCH ×2 (08:11→20:37)
[2017-06-08] MEDS: SODIUM CHLORIDE 0.9% FLUSH 10 ML FLUSH IV FLUSH SCH ×2 (08:11→20:48)
[2017-06-08] MEDS: SODIUM CHLOR 0.45% 1000 ML INJ 1,000 ML IV SCH (11:40)
--- NOTE | 2017-06-08 13:28 | HHI.PR ---
Subjective Remarks patient seen and examined with the nurse at the bedside NG tube in place will start Jevity feeding Patient has been afebrile no chest pain or short of breath Objective Vitals Vital Signs Date Time Temp Pulse Resp B/P (MAP) Pulse Ox O2 Delivery O2 Flow Rate FiO2 06/08/17 12:00 96.6 89 18 135/85 (102) 96 06/08/17 08:00 96.8 85 17 157/84 (108) 92 06/08/17 04:00 97.4 85 20 152/78 (102) 94 06/08/17 00:00 97.2 77 20 152/68 (96) 92 06/07/17 20:00 95.4 73 15 138/73 (94) 94 06/07/17 17:37 92 21 I/O 06/07/17 06/07/17 06/07/17 06/08/17 06/08/17 06/08/17 07:00 15:00 23:00 07:00 15:00 23:00 Intake Total 100 ml 100 ml 100 ml 100 ml Output Total 750 ml 525 ml 400 ml Balance -650 ml -425 ml -300 ml 100 ml Intake Oral 0 ml IV Total 100 ml 100 ml 100 ml 100 ml Output Urine Total 750 ml 525 ml 400 ml # Bowel Movements 0 Result Diagram: 06/08/17 0525 06/07/17 0820 Objective Remarks GENERAL: Well-nourished, well-developed middle-aged male patient in NAD. Hard of hearing. SKIN: Warm and dry. No rash. HEAD: Normocephalic. Atraumatic. EYES: Pupils equal and round. No scleral icterus. No injection or drainage. ENT: No nasal bleeding or discharge. Mucous membranes pink and moist. NECK: Supple. Trachea midline. CARDIOVASCULAR: Regular rate and rhythm. S1, S2 noted. No murmur appreciated. RESPIRATORY: No accessory muscle use. Bibasilar crackles. Breath sounds equal bilaterally. GASTROINTESTINAL: Abdomen soft, non-tender, nondistended. Normoactive bowel sounds x4. MUSCULOSKELETAL: No obvious deformities. Bilateral chronic stasis dermatitis with 2+ pitting edema, left slightly worse than the right. NEUROLOGICAL: Awake and alert. No obvious cranial nerve deficits. Motor grossly within normal limits. Left eyelid/facial droop. Slurred speech. PSYCHIATRIC: Appropriate mood and affect; insight and judgment normal. A/P Problem List: (1) Myasthenia gravis ICD Code: G70.00 - Myasthenia gravis without (acute) exacerbation Status: Acute (2) Dysphagia ICD Code: R13.10 - Dysphagia, unspecified Status: Acute Assessment and Plan 57-year-old male with history of myasthenia gravis, asthma/COPD, chronic pain on methadone, chronic lower extremity edema, presents with dysphagia after failing an outpatient swallow study. Dysphagia, possible early Aspiration Pneumonia: Suspect secondary to myasthenia gravis flare. Patient sent to the hospital after failing 2 outpatient swallow studies with reported aspiration. +leukocytosis WBC 18.3K however noted patient is also on steroids at home. Chest Xray images reviewed, no acute findings. -Keep NPO for now -D/W speech therapy -Give supportive treatment with IV fluid hydration with D5 1/2 NS with KCl at 40cc/hr, will stop one starting tube feeding -Start on IV Zosyn to cover for possible aspiration pneumonia -Repeat CXR in the am Myasthenia Gravis Flare: patient with slurred speech, left facial droop, drooling, dysphagia. Symptoms started 06/01. -change patient's po prednisone to IV Solumedrol for now while NPO -unable to restart patient's azathioprine while NPO -Appreciate neurology consultation, recommended hematology consult, Vas-Cath starting plasmapheresis, NG tube inserted will start Jevity today consult dietitian -Consult PT/OT/ST Chronic Venous Stasis Dermatitis/Edema: patient denies any history of CHF. -elevate legs -caution with IV fluids, 2-D echo pending Asthma/COPD: chronic, does not appear to be in exacerbation. Stable on room air. -duonebs prn DVT Prophylaxis: Heparin sq Varinder Pantoja MD Jun 08, 2017 13:28
--- NOTE | 2017-06-08 14:28 | ECHRPT ---
Indication: CVA/TIA CONCLUSIONS The left ventricular systolic function is normal with an estimated ejection fraction in the range of 55-60%. Doppler parameters are consistent with impaired left ventricular relaxtion (grade 1 diastolic dysfun ction). Mildly dilated left ventricle. Mild concentric left ventricular hypertrophy. There is trace tricuspid valve regurgitation. BP: 152 / 78 HR: 85 Rhythm: Sinus MEASUREMENTS (Male / Female) Normal Values Technical Quality:Fair 2D ECHO LV Diastolic Diameter PLAX 6.1 cm 4.2 - 5.9 / 3.9 - 5.3 cm LV Systolic Diameter PLAX 4.0 cm IVS Diastolic Thickness 1.1 cm 0.6 - 1.0 / 0.6 - 0.9 cm LVPW Diastolic Thickness 1.1 cm 0.6 - 1.0 / 0.6 - 0.9 cm LV Relative Wall Thickness 0.4 RV Internal Dim ED PLAX 3.1 cm LVOT Diameter 2.5 cm Aortic Root Diameter 3.6 cm LA Systolic Diameter LX 4.9 cm 3.0 - 4.0 / 2.7 - 3.8 cm M-MODE AV Cusp Separation MM 2.4 cm DOPPLER AV Peak Velocity 116.0 cm/s AV Peak Gradient 5.4 mmHg AV Mean Gradient 3.0 mmHg AV Velocity Time Integral 23.2 cm LVOT Peak Velocity 80.5 cm/s LVOT Peak Gradient 2.6 mmHg LVOT Velocity Time Integral 16.8 cm AV Area Cont Eq vti 3.6 cm AV Area Cont Eq pk 3.4 cm Mitral E Point Velocity 74.5 cm/s Mitral A Point Velocity 93.8 cm/s Mitral E to A Ratio 0.8 LV E' Lateral Velocity 12.7 cm/s Mitral E to LV E' Lateral Ratio 5.9 LV E' Septal Velocity 7.5 cm/s Mitral E to LV E' Septal Ratio 9.9 TR Peak Velocity 163.0 cm/s TR Peak Gradient 10.6 mmHg Right Atrial Pressure 10.0 mmHg Pulmonary Artery Systolic Pressu 20.6 mmHg Right Ventricular Systolic Press 20.6 mmHg PV Peak Velocity 69.9 cm/s PV Peak Gradient 2.0 mmHg FINDINGS LEFT VENTRICLE Mildly dilated left ventricle. Mild concentric left ventricular hypertrophy. The left ventricular systolic function is normal with an estimated ejection fraction in the range of 55-60%. Doppler parameters are consistent with impaired left ventricular relaxtion (grade 1 diastolic dysfun ction). RIGHT VENTRICLE Normal right ventricular size and systolic function. LEFT ATRIUM The left atrial size is mildly dilated. RIGHT ATRIUM The right atrial size is normal. ATRIAL SEPTUM Normal atrial septal thickness. AORTA The aortic root and proximal ascending aorta are normal in size on limited imaging. MITRAL VALVE Structurally normal mitral valve. No mitral valve stenosis or regurgitation. AORTIC VALVE Trileaflet aortic valve. No aortic valve stenosis or regurgitation. TRICUSPID VALVE Structurally normal tricuspid valve. No tricuspid valve stenosis. There is trace tricuspid valve regurgitation. PULMONARY VALVE No pulmonary valve regurgitation or stenosis. VESSELS The inferior vena cava is normal in size. PERICARDIUM No pericardial effusion. Manish Rivera DO (Electronically Signed) Final Date:08 June 2017 14:27
[2017-06-08] MEDS: D5-1/2 NS + KCL 10 MEQ INJ 1,000 ML IV SCH (17:38)
[2017-06-09] VITALS (11 sets, daily range): BP systolic 119–164; BP diastolic 63–85; PULSE 66–84; RESP 16–17; TEMP 95.7–98.3; O2SAT 94–100
[2017-06-09] MEDS: SODIUM CHLOR 0.45% 1000 ML INJ 1,000 ML IV SCH ×2 (01:00→14:20)
[2017-06-09] MEDS: PYRIDOSTIGMINE BROMIDE 60 MG TAB NG SCH ×4 (02:53→20:36)
[2017-06-09] MEDS: PIPERACIL-TAZO 4.5 GM PREMIX 100 ML IV SCH ×4 (02:53→20:33)
--- NOTE | 2017-06-09 07:12 | HHI.PR ---
Subjective Remarks sr still Objective Vital Signs Date Time Temp Pulse Resp B/P (MAP) Pulse Ox O2 Delivery O2 Flow Rate FiO2 06/09/17 04:00 95.9 81 16 133/70 (91) 100 06/09/17 00:00 95.7 67 17 164/76 (105) 95 06/08/17 22:08 93 06/08/17 20:00 95.7 94 16 133/72 (92) 91 06/08/17 16:00 96.1 73 19 136/84 (101) 98 06/08/17 12:00 96.6 89 18 135/85 (102) 96 06/08/17 08:00 96.8 85 17 157/84 (108) 92 I/O 06/08/17 06/08/17 06/08/17 06/09/17 06/09/17 06/09/17 07:00 15:00 23:00 07:00 15:00 23:00 Intake Total 100 ml 100 ml 100 ml Output Total 400 ml 400 ml 240 ml Balance -300 ml 100 ml -300 ml -240 ml Intake Oral 0 ml IV Total 100 ml 100 ml 100 ml Output Urine Total 400 ml 400 ml 240 ml # Bowel Movements 0 Result Diagram: 06/08/17 0525 06/07/17 0820 Objective Remarks speech still very slurred a lot of oral secretions Assessment and Plan Assessment and Plan imp mg cont pred and immuran and pex #2 in am inc mestinon and cxr ? chf i dced ivf and ask med team to do tube feeds today echo pend labs ok 06/09/17 no major change on ngt feeds ehco nl x la 49 b12 >2000 for pex number two today inc mestinon to 120 qid neuro will follow over weekend watch darrion any gi sx on inc mestinon dose Moose Griffin MD Jun 09, 2017 07:12
[2017-06-09 08:34] LABS: BICARBONATE 30.8 MEQ/L (21.0-32.0); CALCIUM 9.2 MG/DL (8.5-10.1); CREATININE 0.89 MG/DL (0.60-1.30)
[2017-06-09] MEDS: azaTHIOprine 50 MG TAB PO SCH ×2 (08:54→20:36)
[2017-06-09] MEDS: predniSONE 10 MG TAB PO SCH ×2 (08:54→20:36)
[2017-06-09] MEDS: FLUTICASONE 200 MCG/VILANTEROL 25 MCG INHALER INH SCH (08:54)
[2017-06-09] MEDS: DOCUSATE SODIUM 50 MG/SENNA 8.6 MG TAB PO SCH ×2 (08:55→20:36)
[2017-06-09] MEDS: SODIUM CHLORIDE 0.9% FLUSH 10 ML FLUSH IV FLUSH SCH ×2 (08:55→20:33)
[2017-06-09 09:47] LABS: METHYLMALONIC ACID 0.05 nmol/mL (<=0.40)
--- NOTE | 2017-06-09 10:50 | PD.ONC.PN ---
Subjective Subjective Remarks Afebrile overnight. Patient resting in room. reports he noticed some improvement in speech after first plasma exchange monday. still with difficulty swallowing. Objective Data Date Time Temp Pulse Resp B/P (MAP) Pulse Ox O2 Delivery O2 Flow Rate FiO2 06/09/17 09:52 94 06/09/17 08:00 98.3 80 16 119/63 (81) 94 06/09/17 04:00 95.9 81 16 133/70 (91) 100 06/09/17 00:00 95.7 67 17 164/76 (105) 95 06/08/17 22:08 93 06/08/17 20:00 95.7 94 16 133/72 (92) 91 06/08/17 16:00 96.1 73 19 136/84 (101) 98 06/08/17 12:00 96.6 89 18 135/85 (102) 96 06/09/17 06/09/17 06/09/17 07:00 15:00 23:00 Output Total 240 ml Balance -240 ml Result Diagram: 06/08/17 0525 06/09/17 0709 Laboratory Results Laboratory Tests Test 06/09/17 07:09 Blood Urea Nitrogen 23 MG/DL Creatinine 0.89 MG/DL Random Glucose 61 MG/DL Calcium Level 9.2 MG/DL Sodium Level 148 MEQ/L Potassium Level 3.3 MEQ/L Chloride Level 110 MEQ/L Carbon Dioxide Level 30.8 MEQ/L Anion Gap 7 MEQ/L Estimat Glomerular Filtration Rate 87 ML/MIN B-Type Natriuretic Peptide 27 PG/ML Administered Medications Medications (Trade) Dose Ordered Sig/Bianka Route PRN Reason Start Time Stop Time Status Last Admin Dose Admin Sodium Chloride (NS Flush) 2 ml BID IV FLUSH 06/06/17 21:00 06/09/17 08:55 Senna/Docusate Sodium (Hawa-Colace) 1 tab BID PO 06/06/17 21:00 06/08/17 08:11 Azathioprine (Imuran) 50 mg BID PO 06/06/17 21:00 06/09/17 08:54 Fluticasone/ Vilanterol (Breo Ellipta 200-25 Inh) 1 puff DAILY INH 06/07/17 09:00 06/09/17 08:54 Piperacillin Sod/ Tazobactam Sod 100 ml @ 200 mls/hr Q6H IV 06/06/17 20:00 06/09/17 08:47 Potassium Chloride/Dextrose/ Sod Cl 1,000 ml @ 42 mls/hr [id number] IV 06/06/17 18:00 06/07/17 18:15 Sodium Chloride (NS Flush) 10 ml UNSCH PRN IV FLUSH FLUSH AFTER USING IV ACCESS 06/07/17 13:15 06/08/17 05:06 Prednisone (Deltasone) 10 mg BID PO 06/08/17 09:00 06/09/17 08:54 Pyridostigmine [place] (Mestinon) 120 mg Q6H NG 06/09/17 09:00 06/09/17 08:55 Objective Remarks GENERAL: Middle aged male sitting up in chair next to bed. SKIN: Warm and dry. HEAD: Normocephalic. receiving TF via NGT EYES: No injection or drainage. NECK: Supple, trachea midline. CARDIOVASCULAR: Regular rate and rhythm RESPIRATORY: Breath sounds equal bilaterally. No accessory muscle use. GASTROINTESTINAL: Abdomen soft, non-tender, nondistended. EXTREMITIES: No cyanosis NEUROLOGICAL: awake and alert, garbled speech. Assessment/Plan Problem List: (1) Myasthenia gravis ICD Codes: G70.00 - Myasthenia gravis without (acute) exacerbation Status: Acute Plan: --myasthenia gravis, well-known patient to Dr. Deleon and Dr. Griffin-- >initially diagnosed in 2006. --had pheresis a long time ago. stable disease and has not required any pheresis. --previously on prednisone, Mestinon, Imuran and pheresis in the past. --presented with acute worsening over a short period of time with dysphasia, left eye ptosis. --was initially evaluated by his primary physician who sent him for a swallowing study which he failed. --06/07: PEX #1 --06/08 off day --06/09: PEX #2 Assessment 57y/o male with myasthenia gravis exacerbation admitted for pheresis. h/o Myasthenia gravis. Asthma. COPD. Chronic pain. Chronic edema. Congestive heart failure. Diabetes. anterior mediastinal mass. Plan 1. proceed with PEX #2 2. monitor CBC, coags, fibrinogen, bmp Attending Statement The exam, history, and the medical decision-making described in the above note were completed with the assistance of the mid-level provider. I reviewed and agree with the findings presented. I attest that I had a [id number] encounter with the patient on the same day, and personally performed and documented my assessment and findings in the medical record. 57 yoM with myasthenia gravis undergoing plasmaphereisis #2 today. Improvement in clinical symptoms with pheresis. Maribel Curtis Jun 09, 2017 10:50 Anyi Vasques MD Jun 09, 2017 23:47
[2017-06-09] MEDS ORDERED: SODIUM CHLOR 0.9% 1000 ML IV ONE (13:00)
[2017-06-09] MEDS ORDERED: CALCIUM GLUCONATE INJ 4 GM in SODIUM CHLOR 0.9% 250 ML INJ 200 ML IV ONE (13:00)
[2017-06-09] MEDS ORDERED: ANTICOAGULANT CITRATE DEXTROSE SOLN-A 1L OTHER SCH (13:00)
[2017-06-09 13:11] LABS: AUTOMATED NEUTROPHIL # 9.2 TH/MM3 (1.8-7.7); BASOPHIL % 0.2 % (0.0-2.0); EOSINOPHIL % 0.1 % (0.0-4.0); HEMATOCRIT 42.7 % (39.0-51.0); HEMOGLOBIN 14.3 GM/DL (13.0-17.0); LYMPHOCYTE # 0.3 TH/MM3 (1.0-4.8); MEAN CELL VOLUME 91.3 FL (80.0-100.0); MEAN CORPUSCULAR HEMOGLOBIN 30.5 PG (27.0-34.0); MEAN CORPUSCULAR HGB CONC 33.5 % (32.0-36.0); MEAN PLATELET VOLUME 8.7 FL (7.0-11.0); MONO % 8.1 % (0.0-8.0); MONOCYTE # 0.8 TH/MM3 (0-0.9); NEUT % 88.6 % (16.0-70.0); PLATELET COUNT 227 TH/MM3 (150-450); RED BLOOD COUNT 4.68 MIL/MM3 (4.50-5.90); WHITE BLOOD COUNT 10.4 TH/MM3 (4.0-11.0)
[2017-06-09 13:16] LABS: INTERNATIONAL NORMALIZED RATIO 1.1 RATIO; PROTHROMBIN TIME - PATIENT 11.6 SEC (9.8-11.6)
--- NOTE | 2017-06-09 14:40 | HHI.PR ---
Subjective Remarks Follow for dysphagia and myasthenia gravis flareup Patient asking for chloro septic due to sore throat from the NG tube. Otherwise he stated that he feels better. He scheduled for plasmapheresis today. Patient has no other complaints. Discussed case with patient's nurse. Objective Vitals Vital Signs Date Time Temp Pulse Resp B/P (MAP) Pulse Ox O2 Delivery O2 Flow Rate FiO2 06/09/17 12:01 84 06/09/17 12:00 96.7 83 17 123/73 (90) 95 06/09/17 09:52 94 06/09/17 08:00 98.3 80 16 119/63 (81) 94 06/09/17 07:56 77 06/09/17 04:00 95.9 81 16 133/70 (91) 100 06/09/17 00:00 95.7 67 17 164/76 (105) 95 06/08/17 22:08 93 06/08/17 20:00 95.7 94 16 133/72 (92) 91 06/08/17 16:00 96.1 73 19 136/84 (101) 98 I/O 06/08/17 06/08/17 06/08/17 06/09/17 06/09/17 06/09/17 07:00 15:00 23:00 07:00 15:00 23:00 Intake Total 100 ml 100 ml 100 ml Output Total 400 ml 400 ml 240 ml Balance -300 ml 100 ml -300 ml -240 ml Intake Oral 0 ml IV Total 100 ml 100 ml 100 ml Output Urine Total 400 ml 400 ml 240 ml # Bowel Movements 0 Result Diagram: 06/09/17 1244 06/09/17 0709 Imaging Last Impressions Chest X-Ray 06/07/17 0700 Signed Impressions: Service Date/Time: Wednesday, June 07, 2017 09:55 - CONCLUSION: Hypoaerated lungs with mild vascular congestion and minimal left basilar airspace disease. Nasogastric tube in place. Fox Ernandez MD Catheter Placement X-Ray 06/07/17 0000 Signed Impressions: Service Date/Time: Wednesday, June 07, 2017 10:56 - CONCLUSION: Uncomplicated line placement as above. Fidencio Bernal MD Abdomen X-Ray 06/07/17 0000 Signed Impressions: Service Date/Time: Wednesday, June 07, 2017 09:51 - CONCLUSION: Nasogastric tube appears to be either in the distal antrum or duodenal bulb region. Fox Ernandez MD Objective Remarks GENERAL: in NAD CARDIOVASCULAR: Regular rate and rhythm without murmurs, gallops, or rubs. RESPIRATORY: Breath sounds equal bilaterally. No accessory muscle use. GASTROINTESTINAL: Abdomen soft, non-tender, nondistended. NG in placed Medications and IVs Current Medications Potassium Chloride/Dextrose/ Sod Cl 1,000 ml @ 100 mls/hr Q10H IV Last administered on 06/06/17 15:57; Start 06/06/17 at 15:15; Stop 06/06/17 at 17 :05; Status DC Sodium Chloride 1,000 ml @ 100 mls/hr Q10H IV ; Start 06/06/17 at 16:40; Stop 06/06/17 at 18:00; Status DC Sodium Chloride (NS Flush) 2 ml UNSCH PRN IV FLUSH FLUSH AFTER USING IV ACCESS ; Start 06/06/17 at 16:45 Sodium Chloride (NS Flush) 2 ml BID IV FLUSH Last administered on 06/09/17 08 :55; Start 06/06/17 at 21:00 Acetaminophen (Tylenol) 650 mg Q4H PRN PO TEMP > 100.4; Start 06/06/17 at 16: 45 Ondansetron HCl (Zofran Inj) 4 mg Q6H PRN IVP NAUSEA OR VOMITING; Start at 16:45 Heparin Sodium (Porcine) (Heparin Inj) 5,000 units Q8H SQ Last administered on 06/07/17 02:53; Start 06/06/17 at 18:00; Stop 06/07/17 at 08:10; Status DC Naloxone HCl (Narcan Inj) 0.4 mg UNSCH PRN IV PUSH SEE LABEL COMMENTS; Start 06/06/17 at 16:45 Senna/Docusate Sodium (Hawa-Colace) 1 tab BID PO Last administered on 08:11; Start 06/06/17 at 21:00 Magnesium Hydroxide (Milk Of Magnesia Liq) 30 ml Q12H PRN PO Mild constipation ; Start 06/06/17 at 16:45 Sennosides (Senokot) 17.2 mg Q12H PRN PO Moderate constipation; Start at 16:45 Bisacodyl (Dulcolax Supp) 10 mg DAILY PRN RECTAL SEVERE CONSITIPATION; Start 06/06/17 at 16:45 Lactulose (Lactulose Liq) 30 ml DAILY PRN PO SEVERE CONSITIPATION; Start 06/06 at 16:45 Methylprednisolone Sodium Succinate (SoluMEDROL INJ) 40 mg Q8HR IV PUSH Last administered on 06/08/17 05:24; Start 06/06/17 at 22:00; Stop 06/08/17 at 07 :18; Status DC Azathioprine (Imuran) 50 mg BID PO Last administered on 06/09/17 08:54; Start 06/06/17 at 21:00 Fluticasone/ Vilanterol (Breo Ellipta 200-25 Inh) 1 puff DAILY INH Last administered on 06/09/17 08:54; Start 06/07/17 at 09:00 Piperacillin Sod/ Tazobactam Sod 100 ml @ 200 mls/hr Q6H IV Last administered on 06/09/17 08:47; Start 06/06/17 at 20:00 Potassium Chloride/Dextrose/ Sod Cl 1,000 ml @ 42 mls/hr [id number] IV Last administered on 06/07/17 18:15; Start 06/06/17 at 18:00 Albuterol/ Ipratropium (Duoneb Neb) 1 ampule Q4HR NEB PRN NEB SOB/wheezing; Start 06/06/17 at 18:30 Sodium Chloride 1,000 ml @ 75 mls/hr [id number] IV ; Start 06/07/17 at 09:00 Pyridostigmine [place] (Mestinon) 60 mg Q6H NG Last administered on 06/08/17 05:06; Start 06/07/17 at 09:00; Stop 06/08/17 at 07:18; Status DC Heparin Sodium (Porcine) (*HEPARIN INJ Periprocedural ONLY) 10,000 units STK- MED ONCE .ROUTE Last administered on 06/07/17 12:08; Start 06/07/17 at 10:55 ; Stop 06/07/17 at 10:56; Status DC Lidocaine/ Epinephrine (Xylocaine-Epi 1%-1:100,000 Inj) 20 ml STK-MED ONCE .ROUTE ; Start 06/07/17 at 10:55; Stop 06/07/17 at 10:56; Status DC Sodium Chloride (NS Flush) UNSCH PRN IV FLUSH SEE PROTOCOL; Start 06/07/17 at 12:30 Heparin Sodium (Porcine) (Heparin Inj) UNSCH PRN IV FLUSH SEE PROTOCOL; Start 06/07/17 at 12:30 Albumin Human 4,000 ml @ 250 mls/hr ONCE ONCE IV Last administered on 16:54; Start 06/07/17 at 13:15; Stop 06/08/17 at 05:14; Status DC Diphenhydramine HCl (Benadryl Inj) 25 mg UNSCH PRN IV PUSH ALLERGIC REACTION; Start 06/07/17 at 13:15; Stop 06/15/17 at 18:00 Calcium Gluconate 4 gm/Sodium Chloride 240 ml @ 90 mls/hr ONCE ONCE IV Last administered on 06/07/17 16:55; Start 06/07/17 at 13:15; Stop 06/07/17 at 15 :54; Status DC Sodium Chloride 1,000 ml @ 0 mls/hr Q0M ONCE IV ; Start 06/07/17 at 13:15; Stop 06/07/17 at 13:16; Status DC Anticoagulant Citrate Dextose Barbara A (Acd Formula Inj) 1,000 ml ONCE ONCE OTHER Last administered on 06/07/17 13:15; Start 06/07/17 at 13:15; Stop at 13:16; Status DC Sodium Chloride (NS Flush) 10 ml UNSCH PRN IV FLUSH FLUSH AFTER USING IV ACCESS Last administered on 06/08/17 05:06; Start 06/07/17 at 13:15; Stop 06/15/17 at 18:00 Heparin Sodium (Porcine) (Heparin Inj) 1,000 units UNSCH PRN IV FLUSH FLUSH AFTER USING IV ACCESS; Start 06/07/17 at 13:15; Stop 06/15/17 at 18:00 Pyridostigmine [place] (Mestinon) 90 mg Q6H NG Last administered on 06/09/17 02:53; Start 06/08/17 at 09:00; Stop 06/09/17 at 07:12; Status DC Prednisone (Deltasone) 10 mg BID PO Last administered on 06/09/17t 08:54; Start 06/08/17 at 09:00 Miscellaneous (Pill Splitter) 1 ea UNSCH PRN OTHER SEE LABEL COMMENTS; Start 06/08/17 at 07:45 Pyridostigmine [place] (Mestinon) 120 mg Q6H NG Last administered on 08:55; Start 06/09/17 at 09:00 Albumin Human 4,000 ml @ 250 mls/hr Q48H IV ; Start 06/09/17 at 13:00; Stop at 04:59 Calcium Gluconate 4 gm/Sodium Chloride 240 ml @ 90 mls/hr ONCE ONCE IV ; Start 06/09/17 at 13:00; Stop 06/09/17 at 15:39 Anticoagulant Citrate Dextose Barbara A (Acd Formula Inj) 1,000 ml Q48H OTHER ; Start 06/09/17 at 13:00; Stop 06/15/17 at 13:01 Calcium Gluconate 4 gm/Sodium Chloride 240 ml @ 90 mls/hr ONCE ONCE IV ; Start 06/11/17 at 13:00; Stop 06/11/17 at 15:39 Calcium Gluconate 4 gm/Sodium Chloride 240 ml @ 90 mls/hr ONCE ONCE IV ; Start 06/13/17 at 13:00; Stop 06/13/17 at 15:39 Calcium Gluconate 4 gm/Sodium Chloride 240 ml @ 90 mls/hr ONCE ONCE IV ; Start 06/15/17 at 13:00; Stop 06/15/17 at 15:39 Sodium Chloride 1,000 ml @ 0 mls/hr Q0M ONCE IV ; Start 06/09/17 at 13:00; Stop 06/09/17 at 13:02; Status DC Sodium Chloride 1,000 ml @ 0 mls/hr Q0M ONCE IV ; Start 06/11/17 at 13:00; Stop 06/11/17 at 13:01 Sodium Chloride 1,000 ml @ 0 mls/hr Q0M ONCE IV ; Start 06/13/17 at 13:00; Stop 06/13/17 at 13:01 Sodium Chloride 1,000 ml @ 0 mls/hr Q0M ONCE IV ; Start 06/15/17 at 13:00; Stop 06/15/17 at 13:01 A/P Problem List: (1) Myasthenia gravis ICD Code: G70.00 - Myasthenia gravis without (acute) exacerbation Status: Acute (2) Dysphagia ICD Code: R13.10 - Dysphagia, unspecified Status: Acute Assessment and Plan 57-year-old male with history of myasthenia gravis, asthma/COPD, chronic pain on methadone, chronic lower extremity edema, presents with dysphagia after failing an outpatient swallow study. Dysphagia, possible early Aspiration Pneumonia: Suspect secondary to myasthenia gravis flare. Patient sent to the hospital after failing 2 outpatient swallow studies with reported aspiration. +leukocytosis WBC 18.3K however noted patient is also on steroids at home. Chest Xray images reviewed, no acute findings. -Patient currently nothing by mouth and on tube feeds. -D/W speech therapy -Since patient is on tube feeds Will DC IV fluids. -Continue Zosyn. Myasthenia Gravis Flare: patient with slurred speech, left facial droop, drooling, dysphagia. Symptoms started 06/01. -change patient's po prednisone to IV Solumedrol for now while NPO -unable to restart patient's azathioprine while NPO -Status post Vas-Cath. Patient receiving plasmapheresis at the moment. -Consult PT/OT/ST Chronic Venous Stasis Dermatitis/Edema: patient denies any history of CHF. -elevate legs -caution with IV fluids, 2-D echo pending Asthma/COPD: chronic, does not appear to be in exacerbation. Stable on room air. -duonebs prn DVT Prophylaxis: Heparin sq Discharge Planning Currently patient has a NG tube in place for tube feeds. Hopefully patient dysphasia will resolve with treatment with plasmapheresis so that NG tube could be removed. Maricruz Baumann MD Jun 09, 2017 14:40
[2017-06-09] MEDS ORDERED: PHENOL 1.4% SOLN 180 ML BTL OROPHARYNG PRN (14:45)
[2017-06-09] MEDS: ALBUMIN 5% IV SCH (15:48)
[2017-06-10] VITALS (8 sets, daily range): BP systolic 130–149; BP diastolic 63–82; PULSE 65–82; RESP 14–20; TEMP 95.6–97.9; O2SAT 92–99
[2017-06-10] MEDS: PIPERACIL-TAZO 4.5 GM PREMIX 100 ML IV SCH ×4 (02:45→20:07)
[2017-06-10] MEDS: PYRIDOSTIGMINE BROMIDE 60 MG TAB NG SCH ×4 (02:47→20:08)
[2017-06-10] MEDS: SODIUM CHLOR 0.45% 1000 ML INJ 1,000 ML IV SCH ×2 (02:47→15:32)
[2017-06-10] MEDS: DOCUSATE SODIUM 50 MG/SENNA 8.6 MG TAB PO SCH ×2 (07:29→20:08)
[2017-06-10 08:39] LABS: AUTOMATED NEUTROPHIL # 7.1 TH/MM3 (1.8-7.7); BASOPHIL % 0.2 % (0.0-2.0); EOSINOPHIL # 0.1 TH/MM3 (0-0.4); EOSINOPHIL % 0.6 % (0.0-4.0); HEMATOCRIT 40.8 % (39.0-51.0); HEMOGLOBIN 13.7 GM/DL (13.0-17.0); LYMPH % 8.9 % (9.0-44.0); LYMPHOCYTE # 0.8 TH/MM3 (1.0-4.8); MEAN CORPUSCULAR HEMOGLOBIN 30.4 PG (27.0-34.0); MEAN CORPUSCULAR HGB CONC 33.4 % (32.0-36.0); MEAN PLATELET VOLUME 9.5 FL (7.0-11.0); MONO % 9.9 % (0.0-8.0); MONOCYTE # 0.9 TH/MM3 (0-0.9); NEUT % 80.4 % (16.0-70.0); PLATELET COUNT 212 TH/MM3 (150-450); RED BLOOD COUNT 4.49 MIL/MM3 (4.50-5.90); RED CELL DISTRIBUTION WIDTH 13.7 % (11.6-17.2); WHITE BLOOD COUNT 8.8 TH/MM3 (4.0-11.0)
[2017-06-10 08:49] LABS: INTERNATIONAL NORMALIZED RATIO 1.3 RATIO; PROTHROMBIN TIME - PATIENT 12.9 SEC (9.8-11.6)
[2017-06-10] MEDS: SODIUM CHLORIDE 0.9% FLUSH 10 ML FLUSH IV FLUSH SCH ×2 (08:52→20:07)
[2017-06-10] MEDS: predniSONE 10 MG TAB PO SCH ×2 (08:52→20:08)
[2017-06-10] MEDS: azaTHIOprine 50 MG TAB PO SCH ×2 (08:52→20:08)
[2017-06-10] MEDS: FLUTICASONE 200 MCG/VILANTEROL 25 MCG INHALER INH SCH (08:53)
[2017-06-10] MEDS ORDERED: ACETAMINOPHEN 325 MG TAB PO PRN ×2 (10:00→11:30)
[2017-06-10] MEDS ORDERED: diphenhydrAMINE HCL 25 MG CAP PO PRN ×2 (10:00→11:30)
[2017-06-10] MEDS ORDERED: SODIUM CHLOR 0.9% 250 ML INJ 250 ML IV ONE ×2 (10:00→11:30)
--- NOTE | 2017-06-10 11:51 | PD.ONC.PN ---
Subjective Subjective Remarks Afebrile Pt resting in chair at bedside in no acute distress Has had some diarrhea overnight No bleeding Objective Data Date Time Temp Pulse Resp B/P (MAP) Pulse Ox O2 Delivery O2 Flow Rate FiO2 06/10/17 08:00 95.6 68 19 130/63 (85) 99 06/10/17 04:00 95.7 82 17 143/72 (95) 98 06/10/17 00:00 96.4 74 17 134/82 (99) 96 06/09/17 23:34 66 06/09/17 20:00 95.7 81 16 147/85 (105) 96 06/09/17 17:31 95 21 06/09/17 16:12 66 06/09/17 12:01 84 06/09/17 12:00 96.7 83 17 123/73 (90) 95 06/10/17 06/10/17 06/10/17 07:00 15:00 23:00 Intake Total 597 ml 100 ml Output Total 0 ml Balance 597 ml 100 ml Result Diagram: 06/10/17 0645 06/09/17 0709 Laboratory Results Laboratory Tests Test 06/09/17 12:44 06/10/17 06:45 White Blood Count 10.4 TH/MM3 8.8 TH/MM3 Red Blood Count 4.68 MIL/MM3 4.49 MIL/MM3 Hemoglobin 14.3 GM/DL 13.7 GM/DL Hematocrit 42.7 % 40.8 % Mean Corpuscular Volume 91.3 FL 91.0 FL Mean Corpuscular Hemoglobin 30.5 PG 30.4 PG Mean Corpuscular Hemoglobin Concent 33.5 % 33.4 % Red Cell Distribution Width 14.0 % 13.7 % Platelet Count 227 TH/MM3 212 TH/MM3 Mean Platelet Volume 8.7 FL 9.5 FL Neutrophils (%) (Auto) 88.6 % 80.4 % Lymphocytes (%) (Auto) 3.0 % 8.9 % Monocytes (%) (Auto) 8.1 % 9.9 % Eosinophils (%) (Auto) 0.1 % 0.6 % Basophils (%) (Auto) 0.2 % 0.2 % Neutrophils # (Auto) 9.2 TH/MM3 7.1 TH/MM3 Lymphocytes # (Auto) 0.3 TH/MM3 0.8 TH/MM3 Monocytes # (Auto) 0.8 TH/MM3 0.9 TH/MM3 Eosinophils # (Auto) 0.0 TH/MM3 0.1 TH/MM3 Basophils # (Auto) 0.0 TH/MM3 0.0 TH/MM3 CBC Comment DIFF FINAL DIFF FINAL Differential Comment Prothrombin Time 11.6 SEC 12.9 SEC Prothromb Time International Ratio 1.1 RATIO 1.3 RATIO Activated Partial Thromboplast Time 24.1 SEC 32.2 SEC Fibrinogen 150 mg/dL 91 mg/dL Administered Medications Medications (Trade) Dose Ordered Sig/Bianka Route PRN Reason Start Time Stop Time Status Last Admin Dose Admin Sodium Chloride (NS Flush) 2 ml BID IV FLUSH 06/06/17 21:00 06/10/17 08:52 Senna/Docusate Sodium (Hawa-Colace) 1 tab BID PO 06/06/17 21:00 06/08/17 08:11 Azathioprine (Imuran) 50 mg BID PO 06/06/17 21:00 06/10/17 08:52 Fluticasone/ Vilanterol (Breo Ellipta 200-25 Inh) 1 puff DAILY INH 06/07/17 09:00 06/10/17 08:53 Piperacillin Sod/ Tazobactam Sod 100 ml @ 200 mls/hr Q6H IV 06/06/17 20:00 06/10/17 08:52 Sodium Chloride (NS Flush) 10 ml UNSCH PRN IV FLUSH FLUSH AFTER USING IV ACCESS 06/07/17 13:15 06/15/17 18:00 06/08/17 05:06 Prednisone (Deltasone) 10 mg BID PO 06/08/17 09:00 06/10/17 08:52 Pyridostigmine [place] (Mestinon) 120 mg Q6H NG 06/09/17 09:00 06/10/17 08:52 Albumin Human 4,000 ml @ 250 mls/hr Q48H IV 06/09/17 13:00 06/16/17 04:59 06/09/17 15:48 Sodium Chloride 250 ml @ 15 mls/hr ONCE ONCE IV 06/10/17 11:30 06/11/17 04:09 06/10/17 11:37 Acetaminophen (Tylenol) 650 mg Q4H PRN PO SEE LABEL COMMENTS 06/10/17 11:30 06/10/17 11:37 Diphenhydramine HCl (Benadryl) 25 mg Q4H PRN PO SEE LABEL COMMENTS 06/10/17 11:30 06/10/17 11:37 Objective Remarks GENERAL: Pt sitting up in chair at bedside in no acute distress. SKIN: Warm and dry. HEAD: Normocephalic. NG tube in place. EYES: + L ptosis. NECK: Supple, trachea midline. Vascath, R neck. Minimal blood noted on dressing. CARDIOVASCULAR: Regular rate and rhythm without murmurs. RESPIRATORY: Breath sounds equal bilaterally. No accessory muscle use. GASTROINTESTINAL: Abdomen protuberant, soft. TF ongoing. +BS. EXTREMITIES: Dusky colored with generalized edema. MUSCULOSKELETAL: Adequate muscle tone. NEUROLOGICAL: Awake and alert. Moving all extremities. Speech somewhat garbled. Assessment/Plan Problem List: (1) Myasthenia gravis ICD Codes: G70.00 - Myasthenia gravis without (acute) exacerbation Status: Acute Plan: --myasthenia gravis, well-known patient to Dr. Deleon and Dr. Griffin-- >initially diagnosed in 2006. --had pheresis a long time ago. stable disease and has not required any pheresis. --previously on prednisone, Mestinon, Imuran and pheresis in the past. --presented with acute worsening over a short period of time with dysphasia, left eye ptosis. --was initially evaluated by his primary physician who sent him for a swallowing study which he failed. --06/07: PEX #1 --06/08 off day --06/09: PEX #2 -- 06/10: Off day Assessment 57y/o male with myasthenia gravis exacerbation admitted for pheresis. h/o Myasthenia gravis. Asthma. COPD. Chronic pain. Chronic edema. Congestive heart failure. Diabetes. anterior mediastinal mass. Plan 1. Fibrinogen low today at 91. Will transfuse 1 unit cryoprecipitate to replace clotting factors. 2. Monitor for bleeding. 3. CBC, BMP, Coags and Fibrinogen in am. Attending Statement The exam, history, and the medical decision-making described in the above note were completed with the assistance of the mid-level provider. I reviewed and agree with the findings presented. I attest that I had a [id number] encounter with the patient on the same day, and personally performed and documented my assessment and findings in the medical record. 57 yoM with MG with worsening symptoms. He is s/p plasmapheresis#2 on 06/09/17 with improvement in symptoms. Will plan for repeat pheresis Monday/Monday. Labs tomorrow morning. Rachel Humphrey Jun 10, 2017 11:51 Anyi Vasques MD Jun 10, 2017 15:17
--- NOTE | 2017-06-10 13:10 | HHI.PR ---
Subjective Remarks Follow-up for dysphagia secondary to myasthenia gravis Patient has no complaints. No issues overnight. Deny any bleeding. Objective Vitals Vital Signs Date Time Temp Pulse Resp B/P (MAP) Pulse Ox O2 Delivery O2 Flow Rate FiO2 06/10/17 12:36 97.4 66 14 132/68 99 06/10/17 12:13 97.1 66 18 135/73 97 06/10/17 12:00 97.1 66 18 135/73 (93) 97 06/10/17 08:00 95.6 68 19 130/63 (85) 99 06/10/17 04:00 95.7 82 17 143/72 (95) 98 06/10/17 00:00 96.4 74 17 134/82 (99) 96 06/09/17 23:34 66 06/09/17 20:00 95.7 81 16 147/85 (105) 96 06/09/17 17:31 95 21 06/09/17 16:12 66 I/O 06/09/17 06/09/17 06/09/17 06/10/17 06/10/17 06/10/17 07:00 15:00 23:00 07:00 15:00 23:00 Intake Total 1129 ml 597 ml 105 ml Output Total 240 ml 0 ml Balance -240 ml 1129 ml 597 ml 105 ml Intake Oral 0 ml IV Total 200 ml 100 ml 100 ml Tube Feeding 929 ml 497 ml Blood Product IV Normal Saline Flush 5 ml Output Urine Total 240 ml Gastric Drainage Total 0 ml Result Diagram: 06/10/17 0645 06/09/17 0709 Objective Remarks GENERAL: in NAD HEENT: Left eye ptosis CARDIOVASCULAR: Regular rate and rhythm without murmurs, gallops, or rubs. RESPIRATORY: Breath sounds equal bilaterally. No accessory muscle use. GASTROINTESTINAL: Abdomen soft, non-tender, nondistended. NG in placed Medications and IVs Current Medications Potassium Chloride/Dextrose/ Sod Cl 1,000 ml @ 100 mls/hr Q10H IV Last administered on 06/06/17t 15:57; Start 06/06/17 at 15:15; Stop 06/06/17 at 17 :05; Status DC Sodium Chloride 1,000 ml @ 100 mls/hr Q10H IV ; Start 06/06/17 at 16:40; Stop 06/06/17 at 18:00; Status DC Sodium Chloride (NS Flush) 2 ml UNSCH PRN IV FLUSH FLUSH AFTER USING IV ACCESS ; Start 06/06/17 at 16:45 Sodium Chloride (NS Flush) 2 ml BID IV FLUSH Last administered on 06/10/17 08 :52; Start 06/06/17 at 21:00 Acetaminophen (Tylenol) 650 mg Q4H PRN PO TEMP > 100.4; Start 06/06/17 at 16: 45 Ondansetron HCl (Zofran Inj) 4 mg Q6H PRN IVP NAUSEA OR VOMITING; Start at 16:45 Heparin Sodium (Porcine) (Heparin Inj) 5,000 units Q8H SQ Last administered on 06/07/17 02:53; Start 06/06/17 at 18:00; Stop 06/07/17 at 08:10; Status DC Naloxone HCl (Narcan Inj) 0.4 mg UNSCH PRN IV PUSH SEE LABEL COMMENTS; Start 06/06/17 at 16:45 Senna/Docusate Sodium (Hawa-Colace) 1 tab BID PO Last administered on 08:11; Start 06/06/17 at 21:00 Magnesium Hydroxide (Milk Of Magnesia Liq) 30 ml Q12H PRN PO Mild constipation ; Start 06/06/17 at 16:45 Sennosides (Senokot) 17.2 mg Q12H PRN PO Moderate constipation; Start at 16:45 Bisacodyl (Dulcolax Supp) 10 mg DAILY PRN RECTAL SEVERE CONSITIPATION; Start 06/06/17 at 16:45 Lactulose (Lactulose Liq) 30 ml DAILY PRN PO SEVERE CONSITIPATION; Start 06/06 at 16:45 Methylprednisolone Sodium Succinate (SoluMEDROL INJ) 40 mg Q8HR IV PUSH Last administered on 06/08/17 05:24; Start 06/06/17 at 22:00; Stop 06/08/17 at 07 :18; Status DC Azathioprine (Imuran) 50 mg BID PO Last administered on 06/10/17 08:52; Start 06/06/17 at 21:00 Fluticasone/ Vilanterol (Breo Ellipta 200-25 Inh) 1 puff DAILY INH Last administered on 06/10/17 08:53; Start 06/07/17 at 09:00 Piperacillin Sod/ Tazobactam Sod 100 ml @ 200 mls/hr Q6H IV Last administered on 06/10/17 08:52; Start 06/06/17 at 20:00 Potassium Chloride/Dextrose/ Sod Cl 1,000 ml @ 42 mls/hr [id number] IV Last administered on 06/07/17 18:15; Start 06/06/17 at 18:00; Stop 06/09/17 at 14 :37; Status DC Albuterol/ Ipratropium (Duoneb Neb) 1 ampule Q4HR NEB PRN NEB SOB/wheezing; Start 06/06/17 at 18:30 Sodium Chloride 1,000 ml @ 75 mls/hr [id number] IV ; Start 06/07/17 at 09:00 Pyridostigmine [place] (Mestinon) 60 mg Q6H NG Last administered on 06/08/17 05:06; Start 06/07/17 at 09:00; Stop 06/08/17 at 07:18; Status DC Heparin Sodium (Porcine) (*HEPARIN INJ Periprocedural ONLY) 10,000 units STK- MED ONCE .ROUTE Last administered on 06/07/17 12:08; Start 06/07/17 at 10:55 ; Stop 06/07/17 at 10:56; Status DC Lidocaine/ Epinephrine (Xylocaine-Epi 1%-1:100,000 Inj) 20 ml STK-MED ONCE .ROUTE ; Start 06/07/17 at 10:55; Stop 06/07/17 at 10:56; Status DC Sodium Chloride (NS Flush) UNSCH PRN IV FLUSH SEE PROTOCOL; Start 06/07/17 at 12:30 Heparin Sodium (Porcine) (Heparin Inj) UNSCH PRN IV FLUSH SEE PROTOCOL; Start 06/07/17 at 12:30 Albumin Human 4,000 ml @ 250 mls/hr ONCE ONCE IV Last administered on 16:54; Start 06/07/17 at 13:15; Stop 06/08/17 at 05:14; Status DC Diphenhydramine HCl (Benadryl Inj) 25 mg UNSCH PRN IV PUSH ALLERGIC REACTION; Start 06/07/17 at 13:15; Stop 06/15/17 at 18:00 Calcium Gluconate 4 gm/Sodium Chloride 240 ml @ 90 mls/hr ONCE ONCE IV Last administered on 06/07/17 16:55; Start 06/07/17 at 13:15; Stop 06/07/17 at 15 :54; Status DC Sodium Chloride 1,000 ml @ 0 mls/hr Q0M ONCE IV ; Start 06/07/17 at 13:15; Stop 06/07/17 at 13:16; Status DC Anticoagulant Citrate Dextose Barbara A (Acd Formula Inj) 1,000 ml ONCE ONCE OTHER Last administered on 06/07/17 13:15; Start 06/07/17 at 13:15; Stop at 13:16; Status DC Sodium Chloride (NS Flush) 10 ml UNSCH PRN IV FLUSH FLUSH AFTER USING IV ACCESS Last administered on 06/08/17 05:06; Start 06/07/17 at 13:15; Stop 06/15/17 at 18:00 Heparin Sodium (Porcine) (Heparin Inj) 1,000 units UNSCH PRN IV FLUSH FLUSH AFTER USING IV ACCESS; Start 06/07/17 at 13:15; Stop 06/15/17 at 18:00 Pyridostigmine [place] (Mestinon) 90 mg Q6H NG Last administered on 06/09/17 02:53; Start 06/08/17 at 09:00; Stop 06/09/17 at 07:12; Status DC Prednisone (Deltasone) 10 mg BID PO Last administered on 06/10/17 08:52; Start 06/08/17 at 09:00 Miscellaneous (Pill Splitter) 1 ea UNSCH PRN OTHER SEE LABEL COMMENTS; Start 06/08/17 at 07:45 Pyridostigmine [place] (Mestinon) 120 mg Q6H NG Last administered on 08:52; Start 06/09/17 at 09:00 Albumin Human 4,000 ml @ 250 mls/hr Q48H IV Last administered on 06/09/17 15 :48; Start 06/09/17 at 13:00; Stop 06/16/17 at 04:59 Calcium Gluconate 4 gm/Sodium Chloride 240 ml @ 90 mls/hr ONCE ONCE IV ; Start 06/09/17 at 13:00; Stop 06/09/17 at 15:39; Status DC Anticoagulant Citrate Dextose Barbara A (Acd Formula Inj) 1,000 ml Q48H OTHER ; Start 06/09/17 at 13:00; Stop 06/15/17 at 13:01 Calcium Gluconate 4 gm/Sodium Chloride 240 ml @ 90 mls/hr ONCE ONCE IV ; Start 06/11/17 at 13:00; Stop 06/11/17 at 15:39 Calcium Gluconate 4 gm/Sodium Chloride 240 ml @ 90 mls/hr ONCE ONCE IV ; Start 06/13/17 at 13:00; Stop 06/13/17 at 15:39 Calcium Gluconate 4 gm/Sodium Chloride 240 ml @ 90 mls/hr ONCE ONCE IV ; Start 06/15/17 at 13:00; Stop 06/15/17 at 15:39 Sodium Chloride 1,000 ml @ 0 mls/hr Q0M ONCE IV ; Start 06/09/17 at 13:00; Stop 06/09/17 at 13:02; Status DC Sodium Chloride 1,000 ml @ 0 mls/hr Q0M ONCE IV ; Start 06/11/17 at 13:00; Stop 06/11/17 at 13:01 Sodium Chloride 1,000 ml @ 0 mls/hr Q0M ONCE IV ; Start 06/13/17 at 13:00; Stop 06/13/17 at 13:01 Sodium Chloride 1,000 ml @ 0 mls/hr Q0M ONCE IV ; Start 06/15/17 at 13:00; Stop 06/15/17 at 13:01 Phenol (Chloraseptic [place]) 2 spray Q2H PRN OROPHARYNG sore throat; Start at 14:45 Sodium Chloride 250 ml @ 15 mls/hr ONCE ONCE IV ; Start 06/10/17 at 10:00; Stop 06/11/17 at 02:39; Status Cancel Acetaminophen (Tylenol) 650 mg Q4H PRN PO SEE LABEL COMMENTS; Start 06/10/17 at 10:00; Stop 06/11/17 at 09:59; Status Cancel Diphenhydramine HCl (Benadryl) 25 mg Q4H PRN PO SEE LABEL COMMENTS; Start at 10:00; Stop 06/11/17 at 09:59; Status Cancel Sodium Chloride 250 ml @ 15 mls/hr ONCE ONCE IV Last administered on 11:37; Start 06/10/17 at 11:30; Stop 06/11/17 at 04:09 Acetaminophen (Tylenol) 650 mg Q4H PRN PO SEE LABEL COMMENTS Last administered on 06/10/17 11:37; Start 06/10/17 at 11:30 Diphenhydramine HCl (Benadryl) 25 mg Q4H PRN PO SEE LABEL COMMENTS Last administered on 06/10/17 11:37; Start 06/10/17 at 11:30 A/P Problem List: (1) Myasthenia gravis ICD Code: G70.00 - Myasthenia gravis without (acute) exacerbation Status: Acute (2) Dysphagia ICD Code: R13.10 - Dysphagia, unspecified Status: Acute Assessment and Plan 57-year-old male with history of myasthenia gravis, asthma/COPD, chronic pain on methadone, chronic lower extremity edema, presents with dysphagia after failing an outpatient swallow study. Dysphagia, possible early Aspiration Pneumonia: Suspect secondary to myasthenia gravis flare. Patient sent to the hospital after failing 2 outpatient swallow studies with reported aspiration. +leukocytosis WBC 18.3K however noted patient is also on steroids at home. Chest Xray images reviewed, no acute findings. -Patient currently nothing by mouth and on tube feeds. -goal is hopefully plasmapheresis will help improve dysphasia where NG tube can be removed. -Continue Zosyn. Myasthenia Gravis Flare: patient with slurred speech, left facial droop, drooling, dysphagia. Symptoms started 06/01. -On prednisone and azathioprine while NPO -Status post Vas-Cath. Patient receiving plasmapheresis next treatment on Monday. - PT/OT/ST consulted Chronic Venous Stasis Dermatitis/Edema: patient denies any history of CHF. -elevate legs -caution with IV fluids. Asthma/COPD: chronic, does not appear to be in exacerbation. Stable on room air. -duonebs prn DVT Prophylaxis: Heparin sq Discharge Planning Currently patient has a NG tube in place for tube feeds. Hopefully patient dysphasia will resolve with treatment with plasmapheresis so that NG tube could be removed. Maricruz Baumann MD Jun 10, 2017 13:10
--- NOTE | 2017-06-10 14:21 | HHI.PR ---
Subjective Remarks awake alert oob in chair with friends around him speech is better as is left ptosis per pt and his friends. Objective Vital Signs Date Time Temp Pulse Resp B/P (MAP) Pulse Ox O2 Delivery O2 Flow Rate FiO2 06/10/17 12:36 97.4 66 14 132/68 99 06/10/17 12:13 97.1 66 18 135/73 97 06/10/17 12:00 97.1 66 18 135/73 (93) 97 06/10/17 08:00 95.6 68 19 130/63 (85) 99 06/10/17 04:00 95.7 82 17 143/72 (95) 98 06/10/17 00:00 96.4 74 17 134/82 (99) 96 06/09/17 23:34 66 06/09/17 20:00 95.7 81 16 147/85 (105) 96 06/09/17 17:31 95 21 06/09/17 16:12 66 I/O 06/09/17 06/09/17 06/09/17 06/10/17 06/10/17 06/10/17 07:00 15:00 23:00 07:00 15:00 23:00 Intake Total 1129 ml 597 ml 313 ml Output Total 240 ml 0 ml Balance -240 ml 1129 ml 597 ml 313 ml Intake Oral 0 ml IV Total 200 ml 100 ml 100 ml Tube Feeding 929 ml 497 ml Cryoprecipitate 203 ml Blood Product IV Normal Saline Flush 10 ml Output Urine Total 240 ml Gastric Drainage Total 0 ml Result Diagram: 06/10/17 0645 06/09/17 0709 Objective Remarks awake alert speech still a bit thick and nasal left ptosis motor intact Assessment and Plan Assessment and Plan MG exacerbation plex # 3 06/11/17 cont mestinon and imuran PT-OT Isabel Romero MD Jun 10, 2017 14:21
[2017-06-10] MEDS: SODIUM CHLORIDE 0.9% 10 ML FLUSH IV FLUSH PRN (22:51)
[2017-06-11] VITALS (8 sets, daily range): BP systolic 123–153; BP diastolic 69–83; PULSE 56–69; RESP 17–20; TEMP 96.4–97.6; O2SAT 90–98
[2017-06-11] MEDS: PIPERACIL-TAZO 4.5 GM PREMIX 100 ML IV SCH ×4 (03:59→20:56)
[2017-06-11] MEDS: SODIUM CHLOR 0.45% 1000 ML INJ 1,000 ML IV SCH ×2 (03:59→21:07)
[2017-06-11] MEDS: PYRIDOSTIGMINE BROMIDE 60 MG TAB NG SCH ×4 (03:59→20:58)
[2017-06-11 08:25] LABS: INTERNATIONAL NORMALIZED RATIO 1.1 RATIO; PROTHROMBIN TIME - PATIENT 10.7 SEC (9.8-11.6)
[2017-06-11 08:27] LABS: HEMATOCRIT 41.6 % (39.0-51.0); HEMOGLOBIN 13.9 GM/DL (13.0-17.0); MEAN CELL VOLUME 91.4 FL (80.0-100.0); MEAN CORPUSCULAR HEMOGLOBIN 30.6 PG (27.0-34.0); MEAN CORPUSCULAR HGB CONC 33.5 % (32.0-36.0); MEAN PLATELET VOLUME 9.2 FL (7.0-11.0); PLATELET COUNT 199 TH/MM3 (150-450); RED BLOOD COUNT 4.55 MIL/MM3 (4.50-5.90); RED CELL DISTRIBUTION WIDTH 13.6 % (11.6-17.2); WHITE BLOOD COUNT 8.8 TH/MM3 (4.0-11.0)
--- NOTE | 2017-06-11 08:41 | HHI.PR ---
Subjective Remarks Patient seen and examined this morning her dysphasia secondary to myasthenia gravis. His vitals are stable and afebrile. Patient sitting up in bed, going down for plasmapheresis today. No complaints or concerns. Breathing well. Objective Vital Signs Date Time Temp Pulse Resp B/P (MAP) Pulse Ox O2 Delivery O2 Flow Rate FiO2 06/11/17 08:00 96.4 68 17 123/71 (88) 97 06/11/17 07:19 56 06/11/17 04:00 97.6 64 20 153/74 (100) 91 06/11/17 00:00 97.2 60 20 131/69 (89) 90 06/10/17 20:00 97.9 65 20 149/70 (96) 92 06/10/17 16:00 97.8 79 18 141/68 (92) 96 06/10/17 12:36 97.4 66 14 132/68 99 06/10/17 12:13 97.1 66 18 135/73 97 06/10/17 12:00 97.1 66 18 135/73 (93) 97 I/O 06/10/17 06/10/17 06/10/17 06/11/17 06/11/17 06/11/17 07:00 15:00 23:00 07:00 15:00 23:00 Intake Total 597 ml 343 ml 404 ml 0 ml Output Total 0 ml 100 ml Balance 597 ml 343 ml 404 ml -100 ml Intake Oral 0 ml 0 ml 0 ml IV Total 100 ml 130 ml Tube Feeding 497 ml 404 ml Cryoprecipitate 203 ml Blood Product IV Normal Saline Flush 10 ml Output Urine Total 100 ml Gastric Drainage Total 0 ml # Voids 10 6 # Bowel Movements 3 Result Diagram: 06/11/17 0725 06/09/17 0709 Imaging Last Impressions Chest X-Ray 06/07/17 0700 Signed Impressions: Service Date/Time: Wednesday, June 07, 2017 09:55 - CONCLUSION: Hypoaerated lungs with mild vascular congestion and minimal left basilar airspace disease. Nasogastric tube in place. Fox Ernandez MD Catheter Placement X-Ray 06/07/17 0000 Signed Impressions: Service Date/Time: Wednesday, June 07, 2017 10:56 - CONCLUSION: Uncomplicated line placement as above. Fidencio Bernal MD Abdomen X-Ray 06/07/17 0000 Signed Impressions: Service Date/Time: Wednesday, June 07, 2017 09:51 - CONCLUSION: Nasogastric tube appears to be either in the distal antrum or duodenal bulb region. Fox Ernandez MD Objective Remarks GENERAL: sitting up in bed nad SKIN: Warm and dry. HEAD: Normocephalic. Feeding tube in nare. EYES: No scleral icterus. No injection or drainage. NECK: Supple, trachea midline. No JVD or lymphadenopathy. CARDIOVASCULAR: Regular rate and rhythm without murmurs, gallops, or rubs. RESPIRATORY: Breath sounds equal bilaterally. No accessory muscle use. GASTROINTESTINAL: Abdomen soft, non-tender, nondistended. MUSCULOSKELETAL: chronic venous skin changes LE A/P Problem List: (1) Venous insufficiency ICD Code: I87.2 - Venous insufficiency (chronic) (peripheral) Status: Acute (2) Dysphagia ICD Code: R13.10 - Dysphagia, unspecified Status: Acute (3) Myasthenia gravis ICD Code: G70.00 - Myasthenia gravis without (acute) exacerbation Status: Acute (4) COPD (chronic obstructive pulmonary disease) ICD Code: J44.9 - Chronic obstructive pulmonary disease, unspecified Status: Acute Assessment and Plan 57-year-old male members of her myasthenia gravis presents to the ER after failing outpatient swallow study Dysphagia: - Recommend related to myasthenia flare - Currently nothing by mouth and tube feeds - Being followed by neurology, hopeless of plasmapheresis will help improve dysphagia symptoms and NG tube can be removed - Patient is currently on Zosyn because of concern for aspiration pneumonia Myasthenia gravis exacerbation - Followed by neurology, currently on pyridostigmine bromide and azathioprine while nothing by mouth - Plasmapheresis treatment scheduled for today - PT OT Chronic venous dermatitis - elevate legs Asthma/COPD - stable no signs of exacerbation DVT prophy: heparin Discharge Planning Pending clinical status, per neurology clearance. Fátima Mullins MD Jun 11, 2017 08:41
[2017-06-11 08:48] LABS: BICARBONATE 31.5 MEQ/L (21.0-32.0); CALCIUM 8.6 MG/DL (8.5-10.1); CREATININE 0.86 MG/DL (0.60-1.30)
[2017-06-11] MEDS: FLUTICASONE 200 MCG/VILANTEROL 25 MCG INHALER INH SCH (09:00)
[2017-06-11] MEDS: DOCUSATE SODIUM 50 MG/SENNA 8.6 MG TAB PO SCH ×2 (09:00→20:58)
[2017-06-11] MEDS: azaTHIOprine 50 MG TAB PO SCH ×2 (09:12→20:58)
[2017-06-11] MEDS: SODIUM CHLORIDE 0.9% FLUSH 10 ML FLUSH IV FLUSH SCH ×2 (09:13→20:58)
[2017-06-11] MEDS: predniSONE 10 MG TAB PO SCH ×2 (09:13→20:57)
[2017-06-11] MEDS ORDERED: [UNRECOGNIZED DRUG - OTHER] IV SCH (11:00)
[2017-06-11] MEDS: ALBUMIN 5% IV SCH (12:56)
[2017-06-11] MEDS ORDERED: SODIUM CHLOR 0.9% 1000 ML IV ONE (13:00)
[2017-06-11] MEDS ORDERED: CALCIUM GLUCONATE INJ 4 GM in SODIUM CHLOR 0.9% 250 ML INJ 200 ML IV ONE (13:00)
--- NOTE | 2017-06-11 13:52 | PD.ONC.PN ---
Subjective Subjective Remarks Pt seen and examined in PEX/Dialysis room. No bleeding Tolerated PEX well with no issues per RN Pt looking forward to trying again with speech therapy tomorrow to see if he has improved. Wants NGT removed. Objective Data Date Time Temp Pulse Resp B/P (MAP) Pulse Ox O2 Delivery O2 Flow Rate FiO2 06/11/17 08:00 96.4 68 17 123/71 (88) 97 06/11/17 07:19 56 06/11/17 04:00 97.6 64 20 153/74 (100) 91 06/11/17 00:00 97.2 60 20 131/69 (89) 90 06/10/17 20:00 97.9 65 20 149/70 (96) 92 06/10/17 16:00 97.8 79 18 141/68 (92) 96 06/11/17 06/11/17 06/11/17 07:00 15:00 23:00 Intake Total 0 ml Output Total 100 ml Balance -100 ml Result Diagram: 06/11/17 0725 06/11/17 0726 Laboratory Results Laboratory Tests Test 06/10/17 16:25 06/11/17 07:25 06/11/17 07:26 Fibrinogen 180 mg/dL 212 mg/dL White Blood Count 8.8 TH/MM3 Red Blood Count 4.55 MIL/MM3 Hemoglobin 13.9 GM/DL Hematocrit 41.6 % Mean Corpuscular Volume 91.4 FL Mean Corpuscular Hemoglobin 30.6 PG Mean Corpuscular Hemoglobin Concent 33.5 % Red Cell Distribution Width 13.6 % Platelet Count 199 TH/MM3 Mean Platelet Volume 9.2 FL Prothrombin Time 10.7 SEC Prothromb Time International Ratio 1.1 RATIO Activated Partial Thromboplast Time 24.5 SEC Blood Urea Nitrogen 12 MG/DL Creatinine 0.86 MG/DL Random Glucose 90 MG/DL Calcium Level 8.6 MG/DL Sodium Level 146 MEQ/L Potassium Level 3.2 MEQ/L Chloride Level 108 MEQ/L Carbon Dioxide Level 31.5 MEQ/L Anion Gap 7 MEQ/L Estimat Glomerular Filtration Rate 91 ML/MIN Administered Medications Medications (Trade) Dose Ordered Sig/Bianka Route PRN Reason Start Time Stop Time Status Last Admin Dose Admin Sodium Chloride (NS Flush) 2 ml BID IV FLUSH 06/06/17 21:00 06/11/17 09:13 Ondansetron HCl (Zofran Inj) 4 mg Q6H PRN IVP NAUSEA OR VOMITING 06/06/17 16:45 06/10/17 22:51 Senna/Docusate Sodium (Hawa-Colace) 1 tab BID PO 06/06/17 21:00 06/08/17 08:11 Azathioprine (Imuran) 50 mg BID PO 06/06/17 21:00 06/11/17 09:12 Fluticasone/ Vilanterol (Breo Ellipta 200-25 Inh) 1 puff DAILY INH 06/07/17 09:00 06/11/17 09:00 Piperacillin Sod/ Tazobactam Sod 100 ml @ 200 mls/hr Q6H IV 06/06/17 20:00 06/11/17 09:13 Sodium Chloride (NS Flush) 10 ml UNSCH PRN IV FLUSH FLUSH AFTER USING IV ACCESS 06/07/17 13:15 06/15/17 18:00 06/10/17 22:51 Prednisone (Deltasone) 10 mg BID PO 06/08/17 09:00 06/11/17 09:13 Pyridostigmine [place] (Mestinon) 120 mg Q6H NG 06/09/17 09:00 06/11/17 09:12 Albumin Human 4,000 ml @ 250 mls/hr Q48H IV 06/09/17 13:00 06/16/17 04:59 06/11/17 12:56 Calcium Gluconate 4 gm/Sodium Chloride 240 ml @ 90 mls/hr ONCE ONCE IV 06/11/17 13:00 06/11/17 15:39 06/11/17 12:56 Acetaminophen (Tylenol) 650 mg Q4H PRN PO SEE LABEL COMMENTS 06/10/17 11:30 06/10/17 11:37 Diphenhydramine HCl (Benadryl) 25 mg Q4H PRN PO SEE LABEL COMMENTS 06/10/17 11:30 06/10/17 11:37 Objective Remarks GENERAL: Pt sitting up in chair at bedside in no acute distress. SKIN: Warm and dry. HEAD: Normocephalic. NG tube in place. EYES: + L ptosis. No major change from yesterday. NECK: Supple, trachea midline. Vascath, R neck. CARDIOVASCULAR: Regular rate and rhythm without murmurs. RESPIRATORY: Breath sounds equal bilaterally. No accessory muscle use. GASTROINTESTINAL: Abdomen protuberant, soft. Non tender to palpation. EXTREMITIES: Dusky colored with generalized edema. MUSCULOSKELETAL: Adequate muscle tone. NEUROLOGICAL: Awake and alert. Moving all extremities. Speech remains garbled. Assessment/Plan Problem List: (1) Myasthenia gravis ICD Codes: G70.00 - Myasthenia gravis without (acute) exacerbation Status: Acute Plan: --myasthenia gravis, well-known patient to Dr. Deleon and Dr. Griffin-- >initially diagnosed in 2006. --had pheresis a long time ago. stable disease and has not required any pheresis. --previously on prednisone, Mestinon, Imuran and pheresis in the past. --presented with acute worsening over a short period of time with dysphasia, left eye ptosis. --was initially evaluated by his primary physician who sent him for a swallowing study which he failed. --06/07: PEX #1 --06/08 off day --06/09: PEX #2 -- 06/10: Off day -- 06/11: PEX #3 Assessment 57y/o male with myasthenia gravis exacerbation admitted for pheresis. h/o Myasthenia gravis. Asthma. COPD. Chronic pain. Chronic edema. Congestive heart failure. Diabetes. anterior mediastinal mass. Plan 1. PEX # 3 today. 2. Fibrinogen up to 212 today after getting cryo yesterday. 3. CBC, BMP, Coags and Fibrinogen in am. Attending Statement The exam, history, and the medical decision-making described in the above note were completed with the assistance of the mid-level provider. I reviewed and agree with the findings presented. I attest that I had a [id number] encounter with the patient on the same day, and personally performed and documented my assessment and findings in the medical record. 57 yoM with MG with worsening symptoms undergoing plasmapheresis. Plasmapheresis #3 today. Tolerating well with improving voice and ptosis. Rachel Humphrey Jun 11, 2017 13:52 Anyi Vasques MD Jun 11, 2017 23:10
[2017-06-11] MEDS: SODIUM CHLORIDE 0.9% 10 ML FLUSH IV FLUSH PRN (15:50)
[2017-06-12] VITALS (9 sets, daily range): BP systolic 96–136; BP diastolic 52–74; PULSE 62–80; RESP 17–20; TEMP 96.9–98; O2SAT 96–98
[2017-06-12] MEDS: PYRIDOSTIGMINE BROMIDE 60 MG TAB NG SCH ×4 (02:50→22:41)
[2017-06-12] MEDS: PIPERACIL-TAZO 4.5 GM PREMIX 100 ML IV SCH ×2 (02:50→09:59)
[2017-06-12] MEDS: FLUTICASONE 200 MCG/VILANTEROL 25 MCG INHALER INH SCH (09:00)
[2017-06-12] MEDS: DOCUSATE SODIUM 50 MG/SENNA 8.6 MG TAB PO SCH ×2 (09:00→21:00)
[2017-06-12] MEDS: SODIUM CHLORIDE 0.9% FLUSH 10 ML FLUSH IV FLUSH SCH ×2 (09:00→21:00)
--- NOTE | 2017-06-12 09:13 | HHI.PR ---
Subjective Remarks Patient seen and examined this morning her dysphasia secondary to myasthenia gravis. His vitals are stable and afebrile. States his bottom hurts from all the diarrhea. Has been having diarrhea since he was started on abx. Says his WBC is always up and down because of his myasthenia, reports after three treatments he is usually better and can swallow. He has a swallow study today. Reports his ptosis is better and he can see out of the eye. Says hes bloated and asked if he can hold on the feeds to see how he does with swallow study. Objective Vital Signs Date Time Temp Pulse Resp B/P (MAP) Pulse Ox O2 Delivery O2 Flow Rate FiO2 06/12/17 08:00 96.9 75 19 124/68 (86) 96 06/12/17 04:00 96.9 78 20 129/65 (86) 97 06/12/17 00:00 97.1 62 20 127/72 (90) 96 06/11/17 20:00 97.3 64 20 147/70 (95) 96 06/11/17 17:50 97 21 06/11/17 16:00 96.7 69 18 128/83 (98) 97 06/11/17 14:00 98 I/O 06/11/17 06/11/17 06/11/17 06/12/17 06/12/17 06/12/17 07:00 15:00 23:00 07:00 15:00 23:00 Intake Total 0 ml 853 ml 100 ml 1176 ml 0 ml Output Total 100 ml 150 ml Balance -100 ml 853 ml 100 ml 1026 ml 0 ml Intake Oral 0 ml 0 ml 0 ml 0 ml IV Total 853 ml 100 ml 554 ml Tube Feeding 622 ml Output Urine Total 100 ml 150 ml # Voids 6 7 # Bowel Movements 2 Result Diagram: 06/11/1772406/11/17 07 Imaging Last Impressions Chest X-Ray 06/07/17 0700 Signed Impressions: Service Date/Time: Wednesday, June 07, 2017 09:55 - CONCLUSION: Hypoaerated lungs with mild vascular congestion and minimal left basilar airspace disease. Nasogastric tube in place. Fox Ernandez MD Catheter Placement X-Ray 06/07/17 0000 Signed Impressions: Service Date/Time: Wednesday, June 07, 2017 10:56 - CONCLUSION: Uncomplicated line placement as above. Fidencio Bernal MD Abdomen X-Ray 06/07/17 0000 Signed Impressions: Service Date/Time: Wednesday, June 07, 2017 09:51 - CONCLUSION: Nasogastric tube appears to be either in the distal antrum or duodenal bulb region. Fox Ernandez MD Objective Remarks GENERAL: sitting up in bed nad SKIN: Warm and dry. HEAD: Normocephalic. Feeding tube in nare. EYES: No scleral icterus. No injection or drainage. NECK: Supple, trachea midline. No JVD or lymphadenopathy. CARDIOVASCULAR: Regular rate and rhythm without murmurs, gallops, or rubs. RESPIRATORY: Breath sounds equal bilaterally. No accessory muscle use. GASTROINTESTINAL: Abdomen soft, non-tender, nondistended. MUSCULOSKELETAL: chronic venous skin changes LE A/P Problem List: (1) Venous insufficiency ICD Code: I87.2 - Venous insufficiency (chronic) (peripheral) Status: Acute (2) Dysphagia ICD Code: R13.10 - Dysphagia, unspecified Status: Acute (3) Myasthenia gravis ICD Code: G70.00 - Myasthenia gravis without (acute) exacerbation Status: Acute (4) COPD (chronic obstructive pulmonary disease) ICD Code: J44.9 - Chronic obstructive pulmonary disease, unspecified Status: Acute Assessment and Plan 57-year-old male members of her myasthenia gravis presents to the ER after failing outpatient swallow study Dysphagia: - Likely related to myasthenia flare - Currently nothing by mouth and tube feeds - Being followed by neurology, s/p plasmapheresis yesterday, tolerated it well. Hope is that plasmapheresis will help improve dysphagia symptoms and NG tube can be removed - Patient was placed on Zosyn (06/06- ) because of concern for aspiration pneumonia. CXR normal, lungs are clear. He has significant diarrhea since on abx, will stop and monitor clinically. - swallow eval today, if pass may remove feeding tube Myasthenia gravis exacerbation - Followed by neurology, currently on pyridostigmine bromide and azathioprine while nothing by mouth - S/P Plasmapheresis treatment #3 on 06/11 - PT OT Chronic venous dermatitis - elevate legs Asthma/COPD - stable no signs of exacerbation DVT prophy: heparin Discharge Planning Pending clinical status, per neurology clearance. Swallow study today. Mullins,Fátima Calli MD Jun 12, 2017 09:13
--- NOTE | 2017-06-12 09:34 | PD.ONC.PN ---
Subjective Subjective Remarks Afebrile overnight. Patient resting in bed in nad. Tolerated plasma exchange yesterday. noticed improvement in left eye drooping, as well as speech. Objective Data Date Time Temp Pulse Resp B/P (MAP) Pulse Ox O2 Delivery O2 Flow Rate FiO2 06/12/17 08:00 96.9 75 19 124/68 (86) 96 06/12/17 04:00 96.9 78 20 129/65 (86) 97 06/12/17 00:00 97.1 62 20 127/72 (90) 96 06/11/17 20:00 97.3 64 20 147/70 (95) 96 06/11/17 17:50 97 21 06/11/17 16:00 96.7 69 18 128/83 (98) 97 06/11/17 14:00 98 06/12/17 06/12/17 06/12/17 07:00 15:00 23:00 Intake Total 1176 ml 0 ml Output Total 150 ml Balance 1026 ml 0 ml Result Diagram: 06/11/1772406/11/17725 Administered Medications Medications (Trade) Dose Ordered Sig/Bianka Route PRN Reason Start Time Stop Time Status Last Admin Dose Admin Sodium Chloride (NS Flush) 2 ml BID IV FLUSH 06/06/17 21:00 06/11/17 20:58 Ondansetron HCl (Zofran Inj) 4 mg Q6H PRN IVP NAUSEA OR VOMITING 06/06/17 16:45 06/10/17 22:51 Senna/Docusate Sodium (Hawa-Colace) 1 tab BID PO 06/06/17 21:00 06/08/17 08:11 Azathioprine (Imuran) 50 mg BID PO 06/06/17 21:00 06/11/17 20:58 Fluticasone/ Vilanterol (Breo Ellipta 200-25 Inh) 1 puff DAILY INH 06/07/17 09:00 06/11/17 09:00 Piperacillin Sod/ Tazobactam Sod 100 ml @ 200 mls/hr Q6H IV 06/06/17 20:00 06/12/17 02:50 Sodium Chloride 1,000 ml @ 75 mls/hr [id number] IV 06/07/17 09:00 06/11/17 21:07 Sodium Chloride (NS Flush) 10 ml UNSCH PRN IV FLUSH FLUSH AFTER USING IV ACCESS 06/07/17 13:15 06/15/17 18:00 06/11/17 15:50 Prednisone (Deltasone) 10 mg BID PO 06/08/17 09:00 06/11/17 20:57 Pyridostigmine [place] (Mestinon) 120 mg Q6H NG 06/09/17 09:00 06/12/17 02:50 Albumin Human 4,000 ml @ 250 mls/hr Q48H IV 06/09/17 13:00 06/16/17 04:59 06/11/17 12:56 Acetaminophen (Tylenol) 650 mg Q4H PRN PO SEE LABEL COMMENTS 06/10/17 11:30 06/10/17 11:37 Diphenhydramine HCl (Benadryl) 25 mg Q4H PRN PO SEE LABEL COMMENTS 06/10/17 11:30 06/10/17 11:37 Objective Remarks GENERAL: Middle aged male upright in chair SKIN: Warm and dry. HEAD: Normocephalic. NGT in place, receiving TF EYES: No injection or drainage. NECK: Supple, trachea midline. CARDIOVASCULAR: Regular rate and rhythm RESPIRATORY: diminished at bases. occasional rhonchi. GASTROINTESTINAL: Abdomen soft, non-tender, nondistended. EXTREMITIES: No cyanosis NEUROLOGICAL: aox3. improved but still garbled speech. Assessment/Plan Problem List: (1) Myasthenia gravis ICD Codes: G70.00 - Myasthenia gravis without (acute) exacerbation Status: Acute Plan: --myasthenia gravis, well-known patient to Dr. Deleon and Dr. Griffin-- >initially diagnosed in 2006. --had pheresis a long time ago. stable disease and has not required any pheresis. --previously on prednisone, Mestinon, Imuran and pheresis in the past. --presented with acute worsening over a short period of time with dysphasia, left eye ptosis. --was initially evaluated by his primary physician who sent him for a swallowing study which he failed. --06/07: PEX #1 --06/08 off day --06/09: PEX #2 -- 06/10: Off day -- 06/11: PEX #3 --1/1: off day Assessment 57y/o male with myasthenia gravis exacerbation admitted for pheresis. h/o Myasthenia gravis. Asthma. COPD. Chronic pain. Chronic edema. Congestive heart failure. Diabetes. anterior mediastinal mass. Plan 1. off day today. proceed with PEX #4 tomorrow 2. monitor CBC, Coags and Fibrinogen Attending Statement The exam, history, and the medical decision-making described in the above note were completed with the assistance of the mid-level provider. I reviewed and agree with the findings presented. I attest that I had a [id number] encounter with the patient on the same day, and personally performed and documented my assessment and findings in the medical record. 57 yoF with MG admitted for plasmapheresis. Improvement in symtpoms. Maribel Curtis Jun 12, 2017 09:34 Anyi Vasques MD Jun 13, 2017 07:08
[2017-06-12] MEDS: azaTHIOprine 50 MG TAB PO SCH ×2 (10:00→22:42)
[2017-06-12] MEDS: predniSONE 10 MG TAB PO SCH ×2 (10:01→22:41)
[2017-06-12 10:12] LABS: AUTOMATED NEUTROPHIL # 11.1 TH/MM3 (1.8-7.7); BASOPHIL # 0.1 TH/MM3 (0-0.2); BASOPHIL % 0.4 % (0.0-2.0); EOSINOPHIL # 0.3 TH/MM3 (0-0.4); HEMATOCRIT 41.2 % (39.0-51.0); HEMOGLOBIN 13.7 GM/DL (13.0-17.0); LYMPH % 5.9 % (9.0-44.0); LYMPHOCYTE # 0.8 TH/MM3 (1.0-4.8); MEAN CELL VOLUME 91.8 FL (80.0-100.0); MEAN CORPUSCULAR HEMOGLOBIN 30.5 PG (27.0-34.0); MEAN CORPUSCULAR HGB CONC 33.2 % (32.0-36.0); MEAN PLATELET VOLUME 9.5 FL (7.0-11.0); MONO % 5.4 % (0.0-8.0); MONOCYTE # 0.7 TH/MM3 (0-0.9); NEUT % 86.3 % (16.0-70.0); PLATELET COUNT 148 TH/MM3 (150-450); RED BLOOD COUNT 4.48 MIL/MM3 (4.50-5.90); RED CELL DISTRIBUTION WIDTH 14.1 % (11.6-17.2); WHITE BLOOD COUNT 12.8 TH/MM3 (4.0-11.0)
[2017-06-12 10:22] LABS: INTERNATIONAL NORMALIZED RATIO 1.1 RATIO
[2017-06-12 10:35] LABS: BICARBONATE 31.4 MEQ/L (21.0-32.0); CALCIUM 8.8 MG/DL (8.5-10.1); CREATININE 0.63 MG/DL (0.60-1.30)
[2017-06-12] MEDS: POTASSIUM CHLOR 20 MEQ PREMIX 100 ML IV SCH ×2 (13:34→15:43)
[2017-06-12] MEDS: SODIUM CHLOR 0.45% 1000 ML INJ 1,000 ML IV SCH ×2 (13:34→22:41)
--- NOTE | 2017-06-12 15:53 | HHI.PR ---
Subjective Remarks no new issues in chair alert Objective Vital Signs Date Time Temp Pulse Resp B/P (MAP) Pulse Ox O2 Delivery O2 Flow Rate FiO2 06/12/17 13:07 98 06/12/17 12:00 97.6 79 20 123/70 (87) 97 06/12/17 08:00 96.9 75 19 124/68 (86) 96 06/12/17 04:00 96.9 78 20 129/65 (86) 97 06/12/17 00:00 97.1 62 20 127/72 (90) 96 06/11/17 20:00 97.3 64 20 147/70 (95) 96 06/11/17 17:50 97 21 06/11/17 16:00 96.7 69 18 128/83 (98) 97 I/O 06/11/17 06/11/17 06/11/17 06/12/17 06/12/17 06/12/17 07:00 15:00 23:00 07:00 15:00 23:00 Intake Total 0 ml 853 ml 100 ml 1176 ml 0 ml Output Total 100 ml 150 ml Balance -100 ml 853 ml 100 ml 1026 ml 0 ml Intake Oral 0 ml 0 ml 0 ml 0 ml IV Total 853 ml 100 ml 554 ml Tube Feeding 622 ml Output Urine Total 100 ml 150 ml # Voids 6 7 # Bowel Movements 2 Result Diagram: 06/12/1721 06/12/17920 Objective Remarks awake alert not short of breath speech still a bit thick and nasal left ptosis better motor intact Assessment and Plan Assessment and Plan MG exacerbation plex # 4 06/13/17 cont mestinon and imuran PT-OT ST barium swallow tomorrow dr garcia in am. Isabel Novak MD Jun 12, 2017 15:53
[2017-06-13] VITALS (9 sets, daily range): BP systolic 124–145; BP diastolic 67–76; PULSE 67–80; RESP 16–20; TEMP 95.8–97.3; O2SAT 94–99
[2017-06-13] MEDS: PYRIDOSTIGMINE BROMIDE 60 MG TAB NG SCH ×4 (03:07→21:44)
[2017-06-13 07:20] LABS: AUTOMATED NEUTROPHIL # 10.1 TH/MM3 (1.8-7.7); BASOPHIL % 0.2 % (0.0-2.0); EOSINOPHIL # 0.1 TH/MM3 (0-0.4); EOSINOPHIL % 1.1 % (0.0-4.0); HEMATOCRIT 38.5 % (39.0-51.0); HEMOGLOBIN 12.9 GM/DL (13.0-17.0); LYMPH % 3.6 % (9.0-44.0); LYMPHOCYTE # 0.4 TH/MM3 (1.0-4.8); MEAN CORPUSCULAR HEMOGLOBIN 30.4 PG (27.0-34.0); MEAN CORPUSCULAR HGB CONC 33.4 % (32.0-36.0); MONO % 5.8 % (0.0-8.0); MONOCYTE # 0.7 TH/MM3 (0-0.9); NEUT % 89.3 % (16.0-70.0); PLATELET COUNT 168 TH/MM3 (150-450); RED BLOOD COUNT 4.24 MIL/MM3 (4.50-5.90); RED CELL DISTRIBUTION WIDTH 13.7 % (11.6-17.2); WHITE BLOOD COUNT 11.3 TH/MM3 (4.0-11.0)
[2017-06-13 07:27] LABS: PROTHROMBIN TIME - PATIENT 10.5 SEC (9.8-11.6)
[2017-06-13 07:49] LABS: BICARBONATE 27.8 MEQ/L (21.0-32.0); CALCIUM 8.3 MG/DL (8.5-10.1); CREATININE 0.53 MG/DL (0.60-1.30)
--- NOTE | 2017-06-13 08:13 | HHI.PR ---
Subjective Remarks sr still Objective Vital Signs Date Time Temp Pulse Resp B/P (MAP) Pulse Ox O2 Delivery O2 Flow Rate FiO2 06/13/17 08:00 96.0 68 18 126/67 (86) 98 06/13/17 04:00 95.8 72 16 127/74 (91) 96 06/13/17 00:00 96.5 70 16 133/75 (94) 97 06/12/17 20:05 68 06/12/17 20:00 97.4 63 17 136/74 (94) 98 06/12/17 17:35 97 21 06/12/17 16:00 98.0 71 19 126/68 (87) 97 06/12/17 13:07 98 06/12/17 12:00 97.6 79 20 123/70 (87) 97 I/O 06/12/17 06/12/17 06/12/17 06/13/17 06/13/17 06/13/17 07:00 15:00 23:00 07:00 15:00 23:00 Intake Total 1176 ml 0 ml 1100 ml 1350 ml Output Total 150 ml 800 ml 750 ml Balance 1026 ml 0 ml 300 ml 600 ml Intake Oral 0 ml 0 ml 0 ml IV Total 554 ml 1100 ml 750 ml Tube Feeding 622 ml 540 ml Other 60 ml Output Urine Total 150 ml 800 ml 750 ml # Bowel Movements 0 Result Diagram: 06/13/17 0637 06/13/17 0637 Objective Remarks speech better still some lingual slurring ngt in ptosis better but eye closure still weak Assessment and Plan Assessment and Plan imp mg cont pred and immuran and pex #2 in am inc mestinon and cxr ? chf i dced ivf and ask med team to do tube feeds today echo pend labs ok 06/09/17 no major change on ngt feeds ehco nl x la 49 b12 >2000 for pex number two today inc mestinon to 120 qid neuro will follow over weekend watch darrion any gi sx on inc mestinon dose 06/13/17 better but still weak in bulbar mm i think he will need more than just 5 pex i rec holding mbs repeat until after 5th pex but he is adamant about repeat today so ok by me Moose Griffin MD Jun 13, 2017 08:13
[2017-06-13] MEDS: DOCUSATE SODIUM 50 MG/SENNA 8.6 MG TAB PO SCH ×2 (09:00→21:00)
--- NOTE | 2017-06-13 09:17 | PD.ONC.PN ---
Subjective Subjective Remarks Afebrile overnight. Patient resting in room. Hoping to have swallow evaluation today so that he can start eating again. No bleeding. Objective Data Date Time Temp Pulse Resp B/P (MAP) Pulse Ox O2 Delivery O2 Flow Rate FiO2 06/13/17 08:00 96.0 68 18 126/67 (86) 98 06/13/17 04:00 95.8 72 16 127/74 (91) 96 06/13/17 00:00 96.5 70 16 133/75 (94) 97 06/12/17 20:05 68 06/12/17 20:00 97.4 63 17 136/74 (94) 98 06/12/17 17:35 97 21 06/12/17 16:00 98.0 71 19 126/68 (87) 97 06/12/17 13:07 98 06/12/17 12:00 97.6 79 20 123/70 (87) 97 06/13/17 06/13/17 06/13/17 07:00 15:00 23:00 Intake Total 1350 ml Output Total 750 ml Balance 600 ml Result Diagram: 06/13/17 0637 06/13/17 0637 Laboratory Results Laboratory Tests Test 06/12/17 09:21 06/13/17 06:37 White Blood Count 12.8 TH/MM3 11.3 TH/MM3 Red Blood Count 4.48 MIL/MM3 4.24 MIL/MM3 Hemoglobin 13.7 GM/DL 12.9 GM/DL Hematocrit 41.2 % 38.5 % Mean Corpuscular Volume 91.8 FL 91.0 FL Mean Corpuscular Hemoglobin 30.5 PG 30.4 PG Mean Corpuscular Hemoglobin Concent 33.2 % 33.4 % Red Cell Distribution Width 14.1 % 13.7 % Platelet Count 148 TH/MM3 168 TH/MM3 Mean Platelet Volume 9.5 FL 9.0 FL Neutrophils (%) (Auto) 86.3 % 89.3 % Lymphocytes (%) (Auto) 5.9 % 3.6 % Monocytes (%) (Auto) 5.4 % 5.8 % Eosinophils (%) (Auto) 2.0 % 1.1 % Basophils (%) (Auto) 0.4 % 0.2 % Neutrophils # (Auto) 11.1 TH/MM3 10.1 TH/MM3 Lymphocytes # (Auto) 0.8 TH/MM3 0.4 TH/MM3 Monocytes # (Auto) 0.7 TH/MM3 0.7 TH/MM3 Eosinophils # (Auto) 0.3 TH/MM3 0.1 TH/MM3 Basophils # (Auto) 0.1 TH/MM3 0.0 TH/MM3 CBC Comment DIFF FINAL DIFF FINAL Differential Comment Prothrombin Time 11.0 SEC 10.5 SEC Prothromb Time International Ratio 1.1 RATIO 1.0 RATIO Activated Partial Thromboplast Time 24.5 SEC 26.2 SEC Fibrinogen 133 mg/dL 182 mg/dL Blood Urea Nitrogen 12 MG/DL 10 MG/DL Creatinine 0.63 MG/DL 0.53 MG/DL Random Glucose 75 MG/DL 109 MG/DL Calcium Level 8.8 MG/DL 8.3 MG/DL Sodium Level 146 MEQ/L 143 MEQ/L Potassium Level 3.1 MEQ/L 3.7 MEQ/L Chloride Level 109 MEQ/L 109 MEQ/L Carbon Dioxide Level 31.4 MEQ/L 27.8 MEQ/L Anion Gap 6 MEQ/L 6 MEQ/L Estimat Glomerular Filtration Rate 130 ML/MIN 159 ML/MIN Administered Medications Medications (Trade) Dose Ordered Sig/Bianka Route PRN Reason Start Time Stop Time Status Last Admin Dose Admin Sodium Chloride (NS Flush) 2 ml BID IV FLUSH 06/06/17 21:00 06/11/17 20:58 Ondansetron HCl (Zofran Inj) 4 mg Q6H PRN IVP NAUSEA OR VOMITING 06/06/17 16:45 06/10/17 22:51 Senna/Docusate Sodium (Hawa-Colace) 1 tab BID PO 06/06/17 21:00 06/08/17 08:11 Azathioprine (Imuran) 50 mg BID PO 06/06/17 21:00 06/12/17 22:42 Fluticasone/ Vilanterol (Breo Ellipta 200-25 Inh) 1 puff DAILY INH 06/07/17 09:00 06/12/17 09:00 Sodium Chloride 1,000 ml @ 75 mls/hr [id number] IV 06/07/17 09:00 06/12/17 22:41 Sodium Chloride (NS Flush) 10 ml UNSCH PRN IV FLUSH FLUSH AFTER USING IV ACCESS 06/07/17 13:15 06/15/17 18:00 06/11/17 15:50 Prednisone (Deltasone) 10 mg BID PO 06/08/17 09:00 06/12/17 22:41 Pyridostigmine [place] (Mestinon) 120 mg Q6H NG 06/09/17 09:00 06/13/17 03:07 Albumin Human 4,000 ml @ 250 mls/hr Q48H IV 06/09/17 13:00 06/16/17 04:59 06/11/17 12:56 Acetaminophen (Tylenol) 650 mg Q4H PRN PO SEE LABEL COMMENTS 06/10/17 11:30 06/10/17 11:37 Diphenhydramine HCl (Benadryl) 25 mg Q4H PRN PO SEE LABEL COMMENTS 06/10/17 11:30 06/10/17 11:37 Objective Remarks GENERAL: Middle aged male sitting up in chair SKIN: Warm and dry. HEAD: Normocephalic. receiving TF via NGT EYES: No injection or drainage. NECK: Supple, trachea midline. CARDIOVASCULAR: Regular rate and rhythm RESPIRATORY: scattered rhonchi GASTROINTESTINAL: Abdomen soft, non-tender, nondistended. EXTREMITIES: No cyanosis NEUROLOGICAL: awake and alert, normal speech. moving extremities. Assessment/Plan Problem List: (1) Myasthenia gravis ICD Codes: G70.00 - Myasthenia gravis without (acute) exacerbation Status: Acute Plan: --myasthenia gravis, well-known patient to Dr. Deleon and Dr. Griffin-- >initially diagnosed in 2006. --had pheresis a long time ago. stable disease and has not required any pheresis. --previously on prednisone, Mestinon, Imuran and pheresis in the past. --presented with acute worsening over a short period of time with dysphasia, left eye ptosis. --was initially evaluated by his primary physician who sent him for a swallowing study which he failed. --06/07: PEX #1 --06/08 off day --06/09: PEX #2 -- 06/10: Off day -- 06/11: PEX #3 --06/12: off day --06/13: PEX #4 Assessment 57y/o male with myasthenia gravis exacerbation admitted for pheresis. h/o Myasthenia gravis. Asthma. COPD. Chronic pain. Chronic edema. Congestive heart failure. Diabetes. anterior mediastinal mass. Plan 1. PEX #4 today 2. monitor CBC, Coags and Fibrinogen Attending Statement The exam, history, and the medical decision-making described in the above note were completed with the assistance of the mid-level provider. I reviewed and agree with the findings presented. I attest that I had a [id number] encounter with the patient on the same day, and personally performed and documented my assessment and findings in the medical record. Has some definite ideas on how he should be treated. He is reluctant to consider 7 tx of plasmapheresis since years ago he only needed 5. He feels that his speech is never going to be perfect but admits not yet his baseline. Less slurring, L ptosis resolved. Eager to be able to eat, pending swallowing study tomorrow. Maribel Curtis Jun 13, 2017 09:17 Key Walters MD Jun 13, 2017 20:07
[2017-06-13] MEDS: azaTHIOprine 50 MG TAB PO SCH ×2 (10:04→21:43)
[2017-06-13] MEDS: predniSONE 10 MG TAB PO SCH ×2 (10:04→21:44)
[2017-06-13] MEDS: FLUTICASONE 200 MCG/VILANTEROL 25 MCG INHALER INH SCH (11:02)
[2017-06-13] MEDS: SODIUM CHLORIDE 0.9% FLUSH 10 ML FLUSH IV FLUSH SCH ×2 (11:02→21:44)
[2017-06-13] MEDS: SODIUM CHLOR 0.45% 1000 ML INJ 1,000 ML IV SCH (11:03)
[2017-06-13] MEDS ORDERED: CALCIUM GLUCONATE INJ 4 GM in SODIUM CHLOR 0.9% 250 ML INJ 200 ML IV ONE (13:00)
[2017-06-13] MEDS ORDERED: SODIUM CHLOR 0.9% 1000 ML IV ONE (13:00)
[2017-06-13] MEDS: ALBUMIN 5% IV SCH (15:42)
--- NOTE | 2017-06-13 17:02 | HHI.PR ---
Subjective Remarks Going for plasma-exchange today Stable no acute issues overnight Neurology recommended more than 5 times plasma-exchange Objective Vitals Vital Signs Date Time Temp Pulse Resp B/P (MAP) Pulse Ox O2 Delivery O2 Flow Rate FiO2 06/13/17 12:00 97.3 80 20 124/72 (89) 97 06/13/17 09:45 98 06/13/17 08:00 96.0 68 18 126/67 (86) 98 06/13/17 07:30 67 06/13/17 04:00 95.8 72 16 127/74 (91) 96 06/13/17 00:00 96.5 70 16 133/75 (94) 97 06/12/17 20:05 68 06/12/17 20:00 97.4 63 17 136/74 (94) 98 06/12/17 17:35 97 21 I/O 06/12/17 06/12/17 06/12/17 06/13/17 06/13/17 06/13/17 07:00 15:00 23:00 07:00 15:00 23:00 Intake Total 1176 ml 0 ml 1100 ml 1350 ml 775 ml Output Total 150 ml 800 ml 750 ml 1200 ml Balance 1026 ml 0 ml 300 ml 600 ml -425 ml Intake Oral 0 ml 0 ml 0 ml IV Total 554 ml 1100 ml 750 ml 775 ml Tube Feeding 622 ml 540 ml Other 60 ml Output Urine Total 150 ml 800 ml 750 ml 1200 ml # Bowel Movements 0 Result Diagram: 06/13/17 0637 06/13/17 0637 Objective Remarks GENERAL: Well-nourished, well-developed middle-aged male patient in NAD. Hard of hearing. SKIN: Warm and dry. No rash. HEAD: Normocephalic. Atraumatic. EYES: Pupils equal and round. No scleral icterus. No injection or drainage. ENT: No nasal bleeding or discharge. Mucous membranes pink and moist. NECK: Supple. Trachea midline. CARDIOVASCULAR: Regular rate and rhythm. S1, S2 noted. No murmur appreciated. RESPIRATORY: No accessory muscle use. Bibasilar crackles. Breath sounds equal bilaterally. GASTROINTESTINAL: Abdomen soft, non-tender, nondistended. Normoactive bowel sounds x4. MUSCULOSKELETAL: No obvious deformities. Bilateral chronic stasis dermatitis with 2+ pitting edema, left slightly worse than the right. NEUROLOGICAL: Awake and alert. No obvious cranial nerve deficits. Motor grossly within normal limits. Left eyelid/facial droop. Slurred speech. PSYCHIATRIC: Appropriate mood and affect; insight and judgment normal. A/P Problem List: (1) Myasthenia gravis ICD Code: G70.00 - Myasthenia gravis without (acute) exacerbation Status: Acute (2) Dysphagia ICD Code: R13.10 - Dysphagia, unspecified Status: Acute Assessment and Plan 06/13/17:: For plasma-exchange today, neurology recommended more than 5 times, will follow further recommendation from neurology 57-year-old male members of her myasthenia gravis presents to the ER after failing outpatient swallow study Dysphagia: - Likely related to myasthenia flare - Currently nothing by mouth and tube feeds - Being followed by neurology, s/p plasmapheresis yesterday, tolerated it well. Hope is that plasmapheresis will help improve dysphagia symptoms and NG tube can be removed - Patient was placed on Zosyn (06/06- ) because of concern for aspiration pneumonia. CXR normal, lungs are clear. He has significant diarrhea since on abx, will stop and monitor clinically. - swallow eval today, if pass may remove feeding tube Myasthenia gravis exacerbation - Followed by neurology, currently on pyridostigmine bromide and azathioprine while nothing by mouth - S/P Plasmapheresis treatment #3 on 06/11 - PT OT Chronic venous dermatitis - elevate legs Asthma/COPD - stable no signs of exacerbation DVT prophy: heparin Discharge Planning Pending clinical status, per neurology clearance. Varinder Pantoja MD Jun 13, 2017 17:02
[2017-06-14] MEDS: SODIUM CHLOR 0.45% 1000 ML INJ 1,000 ML IV SCH ×2 (03:24→15:38)
[2017-06-14] MEDS: PYRIDOSTIGMINE BROMIDE 60 MG TAB NG SCH ×3 (03:24→15:38)
[2017-06-14 07:05] LABS: AUTOMATED NEUTROPHIL # 9.2 TH/MM3 (1.8-7.7); BASOPHIL % 0.3 % (0.0-2.0); EOSINOPHIL # 0.2 TH/MM3 (0-0.4); EOSINOPHIL % 1.5 % (0.0-4.0); HEMATOCRIT 38.4 % (39.0-51.0); HEMOGLOBIN 12.7 GM/DL (13.0-17.0); LYMPH % 4.6 % (9.0-44.0); LYMPHOCYTE # 0.5 TH/MM3 (1.0-4.8); MEAN CELL VOLUME 91.3 FL (80.0-100.0); MEAN CORPUSCULAR HEMOGLOBIN 30.3 PG (27.0-34.0); MEAN CORPUSCULAR HGB CONC 33.2 % (32.0-36.0); MEAN PLATELET VOLUME 8.8 FL (7.0-11.0); MONO % 7.1 % (0.0-8.0); MONOCYTE # 0.7 TH/MM3 (0-0.9); NEUT % 86.5 % (16.0-70.0); PLATELET COUNT 155 TH/MM3 (150-450); RED BLOOD COUNT 4.21 MIL/MM3 (4.50-5.90); RED CELL DISTRIBUTION WIDTH 13.8 % (11.6-17.2); WHITE BLOOD COUNT 10.6 TH/MM3 (4.0-11.0)
[2017-06-14 07:27] LABS: INTERNATIONAL NORMALIZED RATIO 1.2 RATIO; PROTHROMBIN TIME - PATIENT 12.2 SEC (9.8-11.6)
[2017-06-14 07:34] LABS: BICARBONATE 27.1 MEQ/L (21.0-32.0); CALCIUM 8.5 MG/DL (8.5-10.1); CREATININE 0.51 MG/DL (0.60-1.30)
--- NOTE | 2017-06-14 07:34 | HHI.PR ---
Subjective Remarks sr still Objective Vital Signs Date Time Temp Pulse Resp B/P (MAP) Pulse Ox O2 Delivery O2 Flow Rate FiO2 06/13/17 21:03 98 06/13/17 20:00 97.1 75 20 145/76 (99) 94 06/13/17 18:00 96.1 73 18 136/68 (90) 99 06/13/17 12:00 97.3 80 20 124/72 (89) 97 06/13/17 09:45 98 06/13/17 08:00 96.0 68 18 126/67 (86) 98 I/O 06/13/17 06/13/17 06/13/17 06/14/17 06/14/17 06/14/17 07:00 15:00 23:00 07:00 15:00 23:00 Intake Total 1350 ml 1280 ml 2382 ml Output Total 750 ml 2025 ml 400 ml Balance 600 ml -745 ml 1982 ml Intake Oral 0 ml 240 ml IV Total 750 ml 925 ml 1404 ml Tube Feeding 540 ml 355 ml 618 ml Tube Irrigant 120 ml Other 60 ml Output Urine Total 750 ml 2025 ml 400 ml # Voids 1 # Bowel Movements 5 Result Diagram: 06/14/17 0647 06/13/17 0637 Objective Remarks speech better still some lingual slurring no change overnoc ngt in ptosis better Assessment and Plan Assessment and Plan imp mg cont pred and immuran and pex #2 in am inc mestinon and cxr ? chf i dced ivf and ask med team to do tube feeds today echo pend labs ok 06/09/17 no major change on ngt feeds ehco nl x la 49 b12 >2000 for pex number two today inc mestinon to 120 qid neuro will follow over weekend watch darrion any gi sx on inc mestinon dose 06/13/17 better but still weak in bulbar mm i think he will need more than just 5 pex i rec holding mbs repeat until after 5th pex but he is adamant about repeat today so ok by me 06/14/16 no major change after last noc #4 pex willlkiely need more than 5 pex as above about swallow study although he is convinced his speech always this bad with gurgling, i am not so sure Moose Griffin MD Jun 14, 2017 07:34
[2017-06-14 08:00] VITALS: BP 132/62; PULSE 71; RESP 16; TEMP 96.9; O2SAT 97
[2017-06-14] MEDS: DOCUSATE SODIUM 50 MG/SENNA 8.6 MG TAB PO SCH ×2 (08:29→21:00)
[2017-06-14] MEDS: FLUTICASONE 200 MCG/VILANTEROL 25 MCG INHALER INH SCH (08:30)
[2017-06-14] MEDS: SODIUM CHLORIDE 0.9% FLUSH 10 ML FLUSH IV FLUSH SCH (08:30)
[2017-06-14] MEDS: predniSONE 10 MG TAB PO SCH (08:32)
[2017-06-14] MEDS: azaTHIOprine 50 MG TAB PO SCH (08:33)
[2017-06-14 12:00] VITALS: BP 130/67; PULSE 78; RESP 17; TEMP 96; O2SAT 96
--- NOTE | 2017-06-14 15:01 | HHI.PR ---
Subjective Remarks patient wants to have aNG tube removed he still not able to swallow,failed the swallow test again Objective Vitals Vital Signs Date Time Temp Pulse Resp B/P (MAP) Pulse Ox O2 Delivery O2 Flow Rate FiO2 06/14/17 12:00 96.0 78 17 130/67 (88) 96 06/14/17 08:00 96.9 71 16 132/62 (85) 97 06/13/17 21:03 98 06/13/17 20:00 97.1 75 20 145/76 (99) 94 06/13/17 18:00 96.1 73 18 136/68 (90) 99 I/O 06/13/17 06/13/17 06/13/17 06/14/17 06/14/17 06/14/17 06:59 14:59 22:59 06:59 14:59 22:59 Intake Total 1350 ml 1280 ml 2382 ml Output Total 750 ml 2025 ml 400 ml Balance 600 ml -745 ml 1982 ml Intake Oral 0 ml 240 ml IV Total 750 ml 925 ml 1404 ml Tube Feeding 540 ml 355 ml 618 ml Tube Irrigant 120 ml Other 60 ml Output Urine Total 750 ml 2025 ml 400 ml # Voids 1 # Bowel Movements 5 Result Diagram: 06/14/17 0647 06/14/17 0647 Objective Remarks GENERAL: Well-nourished, well-developed middle-aged male patient in [facility]. Hard of hearing. SKIN: Warm and dry. No rash. HEAD: Normocephalic. Atraumatic. EYES: Pupils equal and round. No scleral icterus. No injection or drainage. ENT: No nasal bleeding or discharge. Mucous membranes pink and moist. NECK: Supple. Trachea midline. CARDIOVASCULAR: Regular rate and rhythm. S1, S2 noted. No murmur appreciated. RESPIRATORY: No accessory muscle use. Bibasilar crackles. Breath sounds equal bilaterally. GASTROINTESTINAL: Abdomen soft, non-tender, nondistended. Normoactive bowel sounds x4. MUSCULOSKELETAL: No obvious deformities. Bilateral chronic stasis dermatitis with 1+ pitting edema, left slightly worse than the right. NEUROLOGICAL: Awake and alert. No obvious cranial nerve deficits. Motor grossly within normal limits. Left eyelid/facial droop. Slurred speech. PSYCHIATRIC: Appropriate mood and affect; insight and judgment normal. A/P Problem List: (1) Myasthenia gravis ICD Code: G70.00 - Myasthenia gravis without (acute) exacerbation Status: Acute (2) Dysphagia ICD Code: R13.10 - Dysphagia, unspecified Status: Acute Assessment and Plan 06/13/17:: For plasma-exchange today, neurology recommended more than 5 times, will follow further recommendation from neurology 06/14/17: Continue plasma exchange plan as per neurology recommendation, continue NG tube, speech therapy to follow 57-year-old male members of her myasthenia gravis presents to the ER after failing outpatient swallow study Dysphagia: - Likely related to myasthenia flare - Currently nothing by mouth and tube feeds - Being followed by neurology, s/p plasmapheresis yesterday, tolerated it well. Hope is that plasmapheresis will help improve dysphagia symptoms and NG tube can be removed - Patient was placed on Zosyn (06/06- ) because of concern for aspiration pneumonia. CXR normal, lungs are clear. He has significant diarrhea since on abx, will stop and monitor clinically. - swallow eval today, if pass may remove feeding tube Myasthenia gravis exacerbation - Followed by neurology, currently on pyridostigmine bromide and azathioprine while nothing by mouth - S/P Plasmapheresis treatment #3 on 06/11 - PT OT Chronic venous dermatitis - elevate legs Asthma/COPD - stable no signs of exacerbation DVT prophy: heparin Discharge Planning Pending clinical status, per neurology clearance. Varinder Pantoja MD Jun 14, 2017 15:01
[2017-06-14 16:00] VITALS: BP 151/80; PULSE 89; RESP 17; TEMP 96.2; O2SAT 98
[2017-06-14 18:09] VITALS: O2SAT 98
[2017-06-14 20:00] VITALS: BP 137/72; PULSE 74; RESP 18; TEMP 97.9; O2SAT 96
[2017-06-14 22:15] VITALS: PULSE 74
[2017-06-15] VITALS: BP 124/62; PULSE 87; RESP 18; TEMP 97.9; O2SAT 97
[2017-06-15] MEDS: SODIUM CHLORIDE 0.9% FLUSH 10 ML FLUSH IV FLUSH SCH ×2 (00:05→09:00)
[2017-06-15] MEDS: predniSONE 10 MG TAB PO SCH ×2 (00:05→09:08)
[2017-06-15] MEDS: azaTHIOprine 50 MG TAB PO SCH ×2 (00:05→09:08)
[2017-06-15] MEDS: PYRIDOSTIGMINE BROMIDE 60 MG TAB NG SCH ×4 (00:05→16:19)
[2017-06-15] MEDS: SODIUM CHLOR 0.45% 1000 ML INJ 1,000 ML IV SCH ×2 (05:11→16:21)
[2017-06-15 08:00] VITALS: BP 127/65; PULSE 81; RESP 20; TEMP 97.4; O2SAT 95
[2017-06-15] MEDS: DOCUSATE SODIUM 50 MG/SENNA 8.6 MG TAB PO SCH (09:00)
[2017-06-15] MEDS: FLUTICASONE 200 MCG/VILANTEROL 25 MCG INHALER INH SCH (09:09)
[2017-06-15] MEDS: ALBUMIN 5% IV SCH (11:22)
[2017-06-15] MEDS ORDERED: CALCIUM GLUCONATE INJ 4 GM in SODIUM CHLOR 0.9% 250 ML INJ 200 ML IV ONE (13:00)
[2017-06-15] MEDS ORDERED: SODIUM CHLOR 0.9% 1000 ML IV ONE (13:00)
--- NOTE | 2017-06-15 13:46 | HHI.PR ---
Subjective Remarks speech slightly seems to be improving with a plasma exchange Still having NG tube speech therapy following Afebrile overnight still on plasma exchange, neurology would like to have more than 5 sessions of plasma exchange Objective Vitals Vital Signs Date Time Temp Pulse Resp B/P (MAP) Pulse Ox O2 Delivery O2 Flow Rate FiO2 06/15/17 08:00 97.4 81 20 127/65 (85) 95 06/15/17 00:00 97.9 87 18 124/62 (82) 97 06/14/17 22:15 74 06/14/17 20:00 97.9 74 18 137/72 (93) 96 06/14/17 18:09 98 21 06/14/17 16:00 96.2 89 17 151/80 (103) 98 I/O 06/14/17 06/14/17 06/14/17 06/15/17 06/15/17 06/15/17 06:59 14:59 22:59 06:59 14:59 22:59 Intake Total 2382 ml 0 ml 1000 ml 0 ml Output Total 400 ml 1950 ml 400 ml Balance 1982 ml -1950 ml 600 ml 0 ml Intake Oral 240 ml 0 ml 0 ml 0 ml IV Total 1404 ml 1000 ml Tube Feeding 618 ml Tube Irrigant 120 ml Output Urine Total 400 ml 1950 ml 400 ml # Voids 1 # Bowel Movements 4 Result Diagram: 06/14/17 0647 06/14/17 0647 Objective Remarks GENERAL: Well-nourished, well-developed middle-aged male patient in [facility]. Hard of hearing. SKIN: Warm and dry. No rash. HEAD: Normocephalic. Atraumatic. EYES: Pupils equal and round. No scleral icterus. No injection or drainage. ENT: No nasal bleeding or discharge. Mucous membranes pink and moist. NECK: Supple. Trachea midline. CARDIOVASCULAR: Regular rate and rhythm. S1, S2 noted. No murmur appreciated. RESPIRATORY: No accessory muscle use. Bibasilar crackles. Breath sounds equal bilaterally. GASTROINTESTINAL: Abdomen soft, non-tender, nondistended. Normoactive bowel sounds x4. MUSCULOSKELETAL: No obvious deformities. Bilateral chronic stasis dermatitis with 2+ pitting edema, left slightly worse than the right. NEUROLOGICAL: Awake and alert. No obvious cranial nerve deficits. Motor grossly within normal limits. Left eyelid/facial droop. Slurred speech. PSYCHIATRIC: Appropriate mood and affect; insight and judgment normal. A/P Problem List: (1) Myasthenia gravis ICD Code: G70.00 - Myasthenia gravis without (acute) exacerbation Status: Acute (2) Dysphagia ICD Code: R13.10 - Dysphagia, unspecified Status: Acute Assessment and Plan 06/15/17: Ongoing plasma exchange for total of 5 session, neurology would like to do more than 5 sessions, repeat speech eval swallow, patient wants to get NG tube out 57-year-old male members of her myasthenia gravis presents to the ER after failing outpatient swallow study Dysphagia: - Likely related to myasthenia flare - Currently nothing by mouth and tube feeds - Being followed by neurology, s/p plasmapheresis yesterday, tolerated it well. Hope is that plasmapheresis will help improve dysphagia symptoms and NG tube can be removed - Patient was placed on Zosyn (06/06- ) because of concern for aspiration pneumonia. CXR normal, lungs are clear. He has significant diarrhea since on abx, will stop and monitor clinically. - swallow eval today, if pass may remove feeding tube Myasthenia gravis exacerbation - Followed by neurology, currently on pyridostigmine bromide and azathioprine while nothing by mouth - S/P Plasmapheresis treatment #3 on 06/11 - PT OT Chronic venous dermatitis - elevate legs Asthma/COPD - stable no signs of exacerbation DVT prophy: heparin Discharge Planning Pending clinical status, per neurology clearance. Varinder Pantoja MD Jun 15, 2017 13:46
--- NOTE | 2017-06-15 15:41 | RADRPT ---
EXAM DATE/TIME: 06/15/2017 00:00 [place] COMPARISON: No previous studies available for comparison. INDICATIONS : Dysphagia FLUORO TIME: 1.2 minutes IMAGE COUNT: 0 CONTRAST: Dose as prescribed by speech pathologist. MEDICAL HISTORY : Myasthenia gravis,Asthma, COPD,Bronchoscopy,Umbilical hernia repair SURGICAL HISTORY : Tonsillectomy. Colostomy placement and reversal, ENCOUNTER: Subsequent ACUITY: 2 weeks PAIN SCORE: 0/10 LOCATION: esophagus FINDINGS: The examination was performed in conjunction with speech pathology. CONCLUSION: Please refer to speech pathology report for complete discussion. Tr Ravi MD on June 15, 2017 at 15:38 Board Certified Radiologist. This report was verified electronically.
[2017-06-15 16:00] VITALS: BP 128/67; PULSE 79; RESP 19; TEMP 96.9; O2SAT 96
[2017-06-15 20:00] VITALS: BP 113/58; PULSE 95; RESP 17; TEMP 98; O2SAT 97
[2017-06-15 22:17] VITALS: O2SAT 98
[2017-06-16] VITALS (7 sets, daily range): BP systolic 106–141; BP diastolic 64–80; PULSE 76–98; RESP 18–20; TEMP 96.5–98.8; O2SAT 96–99
[2017-06-16] MEDS: azaTHIOprine 50 MG TAB PO SCH ×3 (00:43→23:30)
[2017-06-16] MEDS: PYRIDOSTIGMINE BROMIDE 60 MG TAB NG SCH ×5 (00:43→23:30)
[2017-06-16] MEDS: predniSONE 10 MG TAB PO SCH ×3 (00:43→23:31)
[2017-06-16] MEDS: SODIUM CHLORIDE 0.9% FLUSH 10 ML FLUSH IV FLUSH SCH ×3 (00:43→23:31)
[2017-06-16] MEDS: SODIUM CHLOR 0.45% 1000 ML INJ 1,000 ML IV SCH ×2 (00:55→14:27)
[2017-06-16] MEDS: ACETAMINOPHEN 325 MG TAB PO PRN ×2 (01:07→06:43)
--- NOTE | 2017-06-16 07:25 | HHI.PR ---
Subjective Remarks sr still Objective Vital Signs Date Time Temp Pulse Resp B/P (MAP) Pulse Ox O2 Delivery O2 Flow Rate FiO2 06/16/17 00:00 96.5 95 18 124/64 (84) 97 06/15/17 22:17 98 21 06/15/17 20:00 98.0 95 17 113/58 (76) 97 06/15/17 16:00 96.9 79 19 128/67 (87) 96 06/15/17 08:00 97.4 81 20 127/65 (85) 95 I/O 06/15/17 06/15/17 06/15/17 06/16/17 06/16/17 06/16/17 07:00 15:00 23:00 07:00 15:00 23:00 Intake Total 1000 ml 0 ml 24 ml Output Total 400 ml 800 ml 600 ml Balance 600 ml 0 ml -776 ml -600 ml Intake Oral 0 ml 0 ml 24 ml IV Total 1000 ml Output Urine Total 400 ml 800 ml 600 ml # Bowel Movements 3 Result Diagram: 06/14/17 0647 06/14/17 0647 Objective Remarks speech better still some lingual slurring improved still mild weak eye closure ngt out no ptosis Assessment and Plan Assessment and Plan imp mg cont pred and immuran and pex #2 in am inc mestinon and cxr ? chf i dced ivf and ask med team to do tube feeds today echo pend labs ok 06/09/17 no major change on ngt feeds ehco nl x la 49 b12 >2000 for pex number two today inc mestinon to 120 qid neuro will follow over weekend watch darrion any gi sx on inc mestinon dose 06/13/17 better but still weak in bulbar mm i think he will need more than just 5 pex i rec holding mbs repeat until after 5th pex but he is adamant about repeat today so ok by me 06/14/16 no major change after last noc #4 pex willlkiely need more than 5 pex as above about swallow study although he is convinced his speech always this bad with gurgling, i am not so sure 06/16/17 improved but not yet nl plan is pex here tomorrow then he could dc and get outpt pex in [place] if hematology agrees on monday or monday for 7 treatment and fu in my office on mon and we will decide then if we pull the line no aspiration but has pooling on mbs and needs mult swallows he needs to make sure he does not go home and eat foods not approved by speech on thickened liquids now some diarrhea better off tube feeds some of that could be due to inc dose mestinon although he has been on two pills b4 he says will have to monitor Moose Griffin MD Jun 16, 2017 07:25
[2017-06-16] MEDS: FLUTICASONE 200 MCG/VILANTEROL 25 MCG INHALER INH SCH (09:00)
[2017-06-16] MEDS: DOCUSATE SODIUM 50 MG/SENNA 8.6 MG TAB PO SCH ×3 (09:00→23:30)
[2017-06-16 13:08] LABS: AUTOMATED NEUTROPHIL # 11.3 TH/MM3 (1.8-7.7); BASOPHIL # 0.1 TH/MM3 (0-0.2); BASOPHIL % 0.5 % (0.0-2.0); EOSINOPHIL # 0.1 TH/MM3 (0-0.4); EOSINOPHIL % 1.2 % (0.0-4.0); HEMATOCRIT 40.5 % (39.0-51.0); HEMOGLOBIN 13.5 GM/DL (13.0-17.0); LYMPH % 3.1 % (9.0-44.0); LYMPHOCYTE # 0.4 TH/MM3 (1.0-4.8); MEAN CELL VOLUME 92.6 FL (80.0-100.0); MEAN CORPUSCULAR HEMOGLOBIN 30.9 PG (27.0-34.0); MEAN CORPUSCULAR HGB CONC 33.3 % (32.0-36.0); MEAN PLATELET VOLUME 9.1 FL (7.0-11.0); MONO % 5.7 % (0.0-8.0); MONOCYTE # 0.7 TH/MM3 (0-0.9); NEUT % 89.5 % (16.0-70.0); PLATELET COUNT 180 TH/MM3 (150-450); RED BLOOD COUNT 4.38 MIL/MM3 (4.50-5.90); RED CELL DISTRIBUTION WIDTH 14.7 % (11.6-17.2); WHITE BLOOD COUNT 12.6 TH/MM3 (4.0-11.0)
[2017-06-16 13:16] LABS: INTERNATIONAL NORMALIZED RATIO 1.1 RATIO; PROTHROMBIN TIME - PATIENT 11.3 SEC (9.8-11.6)
[2017-06-16 13:31] LABS: BICARBONATE 25.8 MEQ/L (21.0-32.0); CALCIUM 8.8 MG/DL (8.5-10.1); CREATININE 0.67 MG/DL (0.60-1.30)
--- NOTE | 2017-06-16 13:55 | PD.ONC.PN ---
Subjective Subjective Remarks Afebrile overnight. Patient resting in bed in nad. Doing much better. Wants to go home. Agreed to stay for plasma exchange tomorrow. No bleeding. No tingling in hands or feet. Objective Data Date Time Temp Pulse Resp B/P (MAP) Pulse Ox O2 Delivery O2 Flow Rate FiO2 06/16/17 12:00 98.8 97 20 137/80 (99) 99 06/16/17 08:00 98.2 76 18 106/65 (79) 96 06/16/17 00:00 96.5 95 18 124/64 (84) 97 06/15/17 22:17 98 21 06/15/17 20:00 98.0 95 17 113/58 (76) 97 06/15/17 16:00 96.9 79 19 128/67 (87) 96 06/16/17 06/16/17 06/16/17 07:00 15:00 23:00 Intake Total 1000 ml 240 ml Output Total 600 ml Balance 400 ml 240 ml Result Diagram: 06/16/17 1235 06/16/17 1235 Laboratory Results Laboratory Tests Test 06/16/17 12:35 White Blood Count 12.6 TH/MM3 Red Blood Count 4.38 MIL/MM3 Hemoglobin 13.5 GM/DL Hematocrit 40.5 % Mean Corpuscular Volume 92.6 FL Mean Corpuscular Hemoglobin 30.9 PG Mean Corpuscular Hemoglobin Concent 33.3 % Red Cell Distribution Width 14.7 % Platelet Count 180 TH/MM3 Mean Platelet Volume 9.1 FL Neutrophils (%) (Auto) 89.5 % Lymphocytes (%) (Auto) 3.1 % Monocytes (%) (Auto) 5.7 % Eosinophils (%) (Auto) 1.2 % Basophils (%) (Auto) 0.5 % Neutrophils # (Auto) 11.3 TH/MM3 Lymphocytes # (Auto) 0.4 TH/MM3 Monocytes # (Auto) 0.7 TH/MM3 Eosinophils # (Auto) 0.1 TH/MM3 Basophils # (Auto) 0.1 TH/MM3 CBC Comment DIFF FINAL Differential Comment Prothrombin Time 11.3 SEC Prothromb Time International Ratio 1.1 RATIO Activated Partial Thromboplast Time 27.3 SEC Fibrinogen 179 mg/dL Blood Urea Nitrogen 12 MG/DL Creatinine 0.67 MG/DL Random Glucose 76 MG/DL Calcium Level 8.8 MG/DL Sodium Level 143 MEQ/L Potassium Level 3.7 MEQ/L Chloride Level 110 MEQ/L Carbon Dioxide Level 25.8 MEQ/L Anion Gap 7 MEQ/L Estimat Glomerular Filtration Rate 121 ML/MIN Administered Medications Medications (Trade) Dose Ordered Sig/Bianka Route PRN Reason Start Time Stop Time Status Last Admin Dose Admin Sodium Chloride (NS Flush) 2 ml UNSCH PRN IV FLUSH FLUSH AFTER USING IV ACCESS 06/06/17 16:45 06/16/17 06:36 Sodium Chloride (NS Flush) 2 ml BID IV FLUSH 06/06/17 21:00 06/16/17 00:43 Acetaminophen (Tylenol) 650 mg Q4H PRN PO TEMP > 100.4 06/06/17 16:45 06/16/17 06:43 Ondansetron HCl (Zofran Inj) 4 mg Q6H PRN IVP NAUSEA OR VOMITING 06/06/17 16:45 06/10/17 22:51 Senna/Docusate Sodium (Hawa-Colace) 1 tab BID PO 06/06/17 21:00 06/08/17 08:11 Azathioprine (Imuran) 50 mg BID PO 06/06/17 21:00 06/16/17 10:38 Fluticasone/ Vilanterol (Breo Ellipta 200-25 Inh) 1 puff DAILY INH 06/07/17 09:00 06/16/17 09:00 Sodium Chloride 1,000 ml @ 75 mls/hr [id number] IV 06/07/17 09:00 06/16/17 00:55 Prednisone (Deltasone) 10 mg BID PO 06/08/17 09:00 06/16/17 10:39 Pyridostigmine [place] (Mestinon) 120 mg Q6H NG 06/09/17 09:00 06/16/17 10:39 Acetaminophen (Tylenol) 650 mg Q4H PRN PO SEE LABEL COMMENTS 06/10/17 11:30 06/10/17 11:37 Diphenhydramine HCl (Benadryl) 25 mg Q4H PRN PO SEE LABEL COMMENTS 06/10/17 11:30 06/10/17 11:37 Objective Remarks GENERAL: Middle aged male upright in chair in nad. SKIN: Warm and dry. HEAD: Normocephalic. EYES: No injection or drainage. no eyelid droop. NECK: Supple, trachea midline. CARDIOVASCULAR: Regular rate and rhythm RESPIRATORY: occasional rhonchi GASTROINTESTINAL: Abdomen soft, non-tender, nondistended. EXTREMITIES: No cyanosis NEUROLOGICAL: aox3. normal speech. moving all extremities. Assessment/Plan Problem List: (1) Myasthenia gravis ICD Codes: G70.00 - Myasthenia gravis without (acute) exacerbation Status: Acute Plan: --myasthenia gravis, well-known patient to Dr. Deleon and Dr. Griffin-- >initially diagnosed in 2006. --had pheresis a long time ago. stable disease and has not required any pheresis. --previously on prednisone, Mestinon, Imuran and pheresis in the past. --presented with acute worsening over a short period of time with dysphasia, left eye ptosis. --was initially evaluated by his primary physician who sent him for a swallowing study which he failed. --06/07: PEX #1 --06/08 off day --06/09: PEX #2 -- 06/10: Off day -- 06/11: PEX #3 --06/12: off day --06/13: PEX #4 --06/14: off day --06/15: PEX #5 --06/16: off day Assessment 57y/o male with myasthenia gravis exacerbation admitted for pheresis. h/o Myasthenia gravis. Asthma. COPD. Chronic pain. Chronic edema. Congestive heart failure. Diabetes. anterior mediastinal mass. Plan 1. off day today. PEX #6 tomorrow. fs faxed to new patient referrals for follow up in clinic Monday or Monday next week for Plasma exchange. 2. monitor CBC, Coags and Fibrinogen 3. patient can be discharged after plasma exchange tomorrow. Attending Statement The exam, history, and the medical decision-making described in the above note were completed with the assistance of the mid-level provider. I reviewed and agree with the findings presented. I attest that I had a [id number] encounter with the patient on the same day, and personally performed and documented my assessment and findings in the medical record. Argumentative, feels that he is a POW, wants to go home after pheresis tomorrow. Discussed recommendations by neurology to proceed with 7 treatments i.e till Monday and not merely his sentiment and desire to go home. States he wants his catheter out. Insist that in 2008 he only needed 5 pheresis treatment, explained that was different time, he is older, disease is more chronic possibly more refractory with his acute presentation, If patient insist, we will pherese tomorrow and remove catheter. Prepared to pherese till Monday treatment #7 if patient will stay. Maribel Curtis Jun 16, 2017 13:55 Key Walters MD Jun 16, 2017 20:58
--- NOTE | 2017-06-16 19:43 | HHI.PR ---
Subjective Remarks NG tube was pulled out, hold until repeat speech therapy Mostly will have another session of plasma exchange tomorrow and discharge as per neurology Objective Vitals Vital Signs Date Time Temp Pulse Resp B/P (MAP) Pulse Ox O2 Delivery O2 Flow Rate FiO2 06/16/17 17:44 96 21 06/16/17 16:00 97.8 98 20 130/75 (93) 96 06/16/17 12:00 98.8 97 20 137/80 (99) 99 06/16/17 11:42 97 06/16/17 08:00 98.2 76 18 106/65 (79) 96 06/16/17 00:00 96.5 95 18 124/64 (84) 97 06/15/17 22:17 98 21 06/15/17 20:00 98.0 95 17 113/58 (76) 97 I/O 06/15/17 06/15/17 06/15/17 06/16/17 06/16/17 06/16/17 07:00 15:00 23:00 07:00 15:00 23:00 Intake Total 1000 ml 0 ml 24 ml 1000 ml 1240 ml 1000 ml Output Total 400 ml 800 ml 600 ml 803 ml Balance 600 ml 0 ml -776 ml 400 ml 1240 ml 197 ml Intake Oral 0 ml 0 ml 24 ml 240 ml 1000 ml IV Total 1000 ml 1000 ml 1000 ml Output Urine Total 400 ml 800 ml 600 ml 800 ml Stool Total 3 ml # Bowel Movements 3 Result Diagram: 06/16/17 1235 06/16/17 1235 Objective Remarks GENERAL: Well-nourished, well-developed middle-aged male patient in [facility]. Hard of hearing. SKIN: Warm and dry. No rash. HEAD: Normocephalic. Atraumatic. EYES: Pupils equal and round. No scleral icterus. No injection or drainage. ENT: No nasal bleeding or discharge. Mucous membranes pink and moist. NECK: Supple. Trachea midline. CARDIOVASCULAR: Regular rate and rhythm. S1, S2 noted. No murmur appreciated. RESPIRATORY: No accessory muscle use. Bibasilar crackles. Breath sounds equal bilaterally. GASTROINTESTINAL: Abdomen soft, non-tender, nondistended. Normoactive bowel sounds x4. MUSCULOSKELETAL: No obvious deformities. Bilateral chronic stasis dermatitis with 2+ pitting edema, left slightly worse than the right. NEUROLOGICAL: Awake and alert. No obvious cranial nerve deficits. Motor grossly within normal limits. Left eyelid/facial droop. Slurred speech. PSYCHIATRIC: Appropriate mood and affect; insight and judgment normal. A/P Problem List: (1) Myasthenia gravis ICD Code: G70.00 - Myasthenia gravis without (acute) exacerbation Status: Acute (2) Dysphagia ICD Code: R13.10 - Dysphagia, unspecified Status: Acute Assessment and Plan 06/16/17: speech therapist recommended. Diet, no need for NG tube at this time, hopefully discharge tomorrow after last session of plasma exchange 57-year-old male members of her myasthenia gravis presents to the ER after failing outpatient swallow study Dysphagia: - Likely related to myasthenia flare - Currently nothing by mouth and tube feeds - Being followed by neurology, s/p plasmapheresis yesterday, tolerated it well. Hope is that plasmapheresis will help improve dysphagia symptoms and NG tube can be removed - Patient was placed on Zosyn (06/06- ) because of concern for aspiration pneumonia. CXR normal, lungs are clear. He has significant diarrhea since on abx, will stop and monitor clinically. - swallow eval today, if pass may remove feeding tube Myasthenia gravis exacerbation - Followed by neurology, currently on pyridostigmine bromide and azathioprine while nothing by mouth - S/P Plasmapheresis treatment #3 on 06/11 - PT OT Chronic venous dermatitis - elevate legs Asthma/COPD - stable no signs of exacerbation DVT prophy: heparin Discharge Planning Pending clinical status, per neurology clearance. Varinder Pantoja MD Jun 16, 2017 19:43
[2017-06-17] MEDS: PYRIDOSTIGMINE BROMIDE 60 MG TAB NG SCH ×3 (02:31→15:00)
[2017-06-17] MEDS: SODIUM CHLOR 0.45% 1000 ML INJ 1,000 ML IV SCH (03:16)
[2017-06-17 08:00] VITALS: BP 134/86; PULSE 100; RESP 18; TEMP 96.6; O2SAT 99
[2017-06-17] MEDS: ACETAMINOPHEN 325 MG TAB PO PRN (08:17)
[2017-06-17] MEDS: predniSONE 10 MG TAB PO SCH (08:26)
[2017-06-17] MEDS: azaTHIOprine 50 MG TAB PO SCH (08:26)
[2017-06-17] MEDS: DOCUSATE SODIUM 50 MG/SENNA 8.6 MG TAB PO SCH (09:00)
[2017-06-17] MEDS: SODIUM CHLORIDE 0.9% FLUSH 10 ML FLUSH IV FLUSH SCH (09:00)
[2017-06-17] MEDS: FLUTICASONE 200 MCG/VILANTEROL 25 MCG INHALER INH SCH (09:00)
[2017-06-17 09:32] LABS: AUTOMATED NEUTROPHIL # 9.1 TH/MM3 (1.8-7.7); BASOPHIL % 0.4 % (0.0-2.0); EOSINOPHIL # 0.1 TH/MM3 (0-0.4); EOSINOPHIL % 1.4 % (0.0-4.0); HEMATOCRIT 38.7 % (39.0-51.0); HEMOGLOBIN 13.1 GM/DL (13.0-17.0); LYMPH % 5.7 % (9.0-44.0); LYMPHOCYTE # 0.6 TH/MM3 (1.0-4.8); MEAN CELL VOLUME 92.4 FL (80.0-100.0); MEAN CORPUSCULAR HEMOGLOBIN 31.3 PG (27.0-34.0); MEAN CORPUSCULAR HGB CONC 33.9 % (32.0-36.0); MEAN PLATELET VOLUME 9.2 FL (7.0-11.0); MONO % 6.1 % (0.0-8.0); MONOCYTE # 0.6 TH/MM3 (0-0.9); NEUT % 86.4 % (16.0-70.0); PLATELET COUNT 189 TH/MM3 (150-450); RED BLOOD COUNT 4.19 MIL/MM3 (4.50-5.90); RED CELL DISTRIBUTION WIDTH 14.8 % (11.6-17.2); WHITE BLOOD COUNT 10.5 TH/MM3 (4.0-11.0)
[2017-06-17 09:45] LABS: PROTHROMBIN TIME - PATIENT 10.6 SEC (9.8-11.6)
--- NOTE | 2017-06-17 09:52 | PD.ONC.PN ---
Subjective Subjective Remarks Afebrile overnight. Patient reporting he is adamant about leaving after his sixth plasma exchange today. He does not want to stay until Monday. He is tired of being in the hospital and reports his symptoms have all improved except for his speech, which he states is due to a speech impediment and not d/ t MG. Objective Data Date Time Temp Pulse Resp B/P (MAP) Pulse Ox O2 Delivery O2 Flow Rate FiO2 06/17/17 08:00 96.6 100 18 134/86 (102) 99 06/16/17 20:00 97.3 83 20 141/73 (95) 98 06/16/17 17:44 96 21 06/16/17 16:00 97.8 98 20 130/75 (93) 96 06/16/17 12:00 98.8 97 20 137/80 (99) 99 06/16/17 11:42 97 06/17/17 06/17/17 06/17/17 07:00 15:00 23:00 Intake Total 50 ml Output Total 1250 ml Balance -1200 ml Result Diagram: 06/17/17 0906 06/16/17 1235 Laboratory Results Laboratory Tests Test 06/16/17 12:35 06/17/17 09:06 White Blood Count 12.6 TH/MM3 10.5 TH/MM3 Red Blood Count 4.38 MIL/MM3 4.19 MIL/MM3 Hemoglobin 13.5 GM/DL 13.1 GM/DL Hematocrit 40.5 % 38.7 % Mean Corpuscular Volume 92.6 FL 92.4 FL Mean Corpuscular Hemoglobin 30.9 PG 31.3 PG Mean Corpuscular Hemoglobin Concent 33.3 % 33.9 % Red Cell Distribution Width 14.7 % 14.8 % Platelet Count 180 TH/MM3 189 TH/MM3 Mean Platelet Volume 9.1 FL 9.2 FL Neutrophils (%) (Auto) 89.5 % 86.4 % Lymphocytes (%) (Auto) 3.1 % 5.7 % Monocytes (%) (Auto) 5.7 % 6.1 % Eosinophils (%) (Auto) 1.2 % 1.4 % Basophils (%) (Auto) 0.5 % 0.4 % Neutrophils # (Auto) 11.3 TH/MM3 9.1 TH/MM3 Lymphocytes # (Auto) 0.4 TH/MM3 0.6 TH/MM3 Monocytes # (Auto) 0.7 TH/MM3 0.6 TH/MM3 Eosinophils # (Auto) 0.1 TH/MM3 0.1 TH/MM3 Basophils # (Auto) 0.1 TH/MM3 0.0 TH/MM3 CBC Comment DIFF FINAL DIFF FINAL Differential Comment Prothrombin Time 11.3 SEC 10.6 SEC Prothromb Time International Ratio 1.1 RATIO 1.0 RATIO Activated Partial Thromboplast Time 27.3 SEC 26.5 SEC Fibrinogen 179 mg/dL 236 mg/dL Blood Urea Nitrogen 12 MG/DL Creatinine 0.67 MG/DL Random Glucose 76 MG/DL Calcium Level 8.8 MG/DL Sodium Level 143 MEQ/L Potassium Level 3.7 MEQ/L Chloride Level 110 MEQ/L Carbon Dioxide Level 25.8 MEQ/L Anion Gap 7 MEQ/L Estimat Glomerular Filtration Rate 121 ML/MIN Administered Medications Medications (Trade) Dose Ordered Sig/Bianka Route PRN Reason Start Time Stop Time Status Last Admin Dose Admin Sodium Chloride (NS Flush) 2 ml UNSCH PRN IV FLUSH FLUSH AFTER USING IV ACCESS 06/06/17 16:45 06/16/17 06:36 Sodium Chloride (NS Flush) 2 ml BID IV FLUSH 06/06/17 21:00 06/16/17 23:31 Acetaminophen (Tylenol) 650 mg Q4H PRN PO TEMP > 100.4 06/06/17 16:45 06/17/17 08:17 Ondansetron HCl (Zofran Inj) 4 mg Q6H PRN IVP NAUSEA OR VOMITING 06/06/17 16:45 06/10/17 22:51 Senna/Docusate Sodium (Hawa-Colace) 1 tab BID PO 06/06/17 21:00 06/16/17 23:30 Azathioprine (Imuran) 50 mg BID PO 06/06/17 21:00 06/17/17 08:26 Fluticasone/ Vilanterol (Breo Ellipta 200-25 Inh) 1 puff DAILY INH 06/07/17 09:00 06/16/17 09:00 Sodium Chloride 1,000 ml @ 75 mls/hr [id number] IV 06/07/17 09:00 06/17/17 03:16 Prednisone (Deltasone) 10 mg BID PO 06/08/17 09:00 06/17/17 08:26 Pyridostigmine [place] (Mestinon) 120 mg Q6H NG 06/09/17 09:00 06/17/17 08:25 Acetaminophen (Tylenol) 650 mg Q4H PRN PO SEE LABEL COMMENTS 06/10/17 11:30 06/10/17 11:37 Diphenhydramine HCl (Benadryl) 25 mg Q4H PRN PO SEE LABEL COMMENTS 06/10/17 11:30 06/10/17 11:37 Objective Remarks GENERAL: Middle aged male, agitated, sitting up in chair in nad. SKIN: Warm and dry. HEAD: Normocephalic. EYES: No injection or drainage. NECK: Supple, trachea midline. CARDIOVASCULAR: Regular rate and rhythm RESPIRATORY: diminished at bases, occasional rhonchi. GASTROINTESTINAL: Abdomen soft, non-tender, nondistended. EXTREMITIES: No cyanosis NEUROLOGICAL: awake and alert, slightly garbled speech.. moving extremities. Assessment/Plan Problem List: (1) Myasthenia gravis ICD Codes: G70.00 - Myasthenia gravis without (acute) exacerbation Status: Acute Plan: --myasthenia gravis, well-known patient to Dr. Deleon and Dr. Griffin-- >initially diagnosed in 2006. --had pheresis a long time ago. stable disease and has not required any pheresis. --previously on prednisone, Mestinon, Imuran and pheresis in the past. --presented with acute worsening over a short period of time with dysphasia, left eye ptosis. --was initially evaluated by his primary physician who sent him for a swallowing study which he failed. --06/07: PEX #1 --06/08 off day --06/09: PEX #2 -- 06/10: Off day -- 06/11: PEX #3 --06/12: off day --06/13: PEX #4 --06/14: off day --06/15: PEX #5 --06/16: off day --06/17: PEX #6 Assessment 57y/o male with myasthenia gravis exacerbation admitted for pheresis. h/o Myasthenia gravis. Asthma. COPD. Chronic pain. Chronic edema. Congestive heart failure. Diabetes. anterior mediastinal mass. Plan 1. PEX #6 today 2. patient insistent upon today being his last plasma exchange, therefore, will remove vas-cath after plasma exchange today and patient is ok to go home. Maribel Curtis Jun 17, 2017 09:52
[2017-06-17 10:00] LABS: BICARBONATE 25.5 MEQ/L (21.0-32.0); CALCIUM 8.9 MG/DL (8.5-10.1); CREATININE 0.64 MG/DL (0.60-1.30)
[2017-06-17 12:00] VITALS: BP 121/75; PULSE 96; RESP 17; TEMP 97.2; O2SAT 96
[2017-06-17] MEDS ORDERED: PYRI60 NG (14:00)
[2017-06-17] MEDS ORDERED: ALBUMIN 5% IV ONE (15:00)
[2017-06-17] MEDS ORDERED: CALCIUM GLUCONATE INJ 4 GM in SODIUM CHLOR 0.9% 250 ML INJ 200 ML IV ONE (15:00)
[2017-06-17] MEDS ORDERED: HEPARIN SODIUM - 1000 UNITS/ML 10 ML VIAL IV FLUSH PRN ×2 (15:00)
[2017-06-17] MEDS ORDERED: ANTICOAGULANT CITRATE DEXTROSE SOLN-A 1L OTHER ONE (15:00)
[2017-06-17] MEDS ORDERED: diphenhydrAMINE HCL 50 MG/ML VIAL IV PUSH PRN (15:00)
[2017-06-17] MEDS ORDERED: SODIUM CHLOR 0.9% 1000 ML IV ONE (15:00)
[2017-06-17] MEDS ORDERED: SODIUM CHLORIDE 0.9% 10 ML FLUSH IV FLUSH PRN (15:00)
[2017-06-17 17:41] VITALS: O2SAT 96
--- NOTE | 2017-06-20 14:54 | HHI.DS ---
Discharge Summary Admission Date Jun 06, 2017 at 18:12 Discharge Date: Jun 17, 2017 Admitting Diagnosis (1) Myasthenia gravis ICD Code: G70.00 - Myasthenia gravis without (acute) exacerbation Status: Acute (2) Dysphagia ICD Code: R13.10 - Dysphagia, unspecified Status: Acute Procedures plasma exchange Brief History - From Admission Written by Marivel Tavarez, acting as scribe for Dr. Pantoja on 06/06/17 at 18: 08. 57-year-old male with history of myasthenia gravis, asthma/COPD, chronic pain on methadone, chronic lower extremity edema, presents with dysphagia after failing an outpatient swallow study. The patient reports he was in his normal state of health up until last 06/01/17 when he started to notice more drooling, difficulty swallowing, left facial/eyelid droop, and slurred speech. He saw his primary care physician Dr. Mai who referred him for an outpatient swallow study at [place], and then was referred to [facility] today for repeat study. He failed both swallow study attempts. He was told that he had aspirated during the study. He denies any recent fevers/chills, chest pains , shortness of breath, abdominal pain, nausea/vomiting, or any other medical complaints. He has been compliant with his medications. He denies any recent illness. He states his myasthenia gravis has been fairly well controlled recently. His neurologist is Dr. Deleon. He has no other medical complaints to report at this time. CBC/BMP: 06/17/17 0906 06/17/17 0906 PE at Discharge GENERAL: Well-nourished, well-developed middle-aged male patient in [place]. Hard of hearing. SKIN: Warm and dry. No rash. HEAD: Normocephalic. Atraumatic. EYES: Pupils equal and round. No scleral icterus. No injection or drainage. ENT: No nasal bleeding or discharge. Mucous membranes pink and moist. NECK: Supple. Trachea midline. CARDIOVASCULAR: Regular rate and rhythm. S1, S2 noted. No murmur appreciated. RESPIRATORY: No accessory muscle use. Bibasilar crackles. Breath sounds equal bilaterally. GASTROINTESTINAL: Abdomen soft, non-tender, nondistended. Normoactive bowel sounds x4. MUSCULOSKELETAL: No obvious deformities. Bilateral chronic stasis dermatitis with 1+ pitting edema, left slightly worse than the right. NEUROLOGICAL: Awake and alert. No obvious cranial nerve deficits. Motor grossly within normal limits. Left eyelid/facial droop. Slurred speech. PSYCHIATRIC: Appropriate mood and affect; insight and judgment normal. Hospital Course 57 years old male admitted with myasthenia gravis exacerbation with dysphagia severe possible aspiration, patient placed on prednisone myasthenia's, neurology agricultural consultant started on plasma exchange for total of 6 sessions, after inserting fast, his speech improved and he passed swallow test is placed on. Diet and eventually discharged home to follow up with neurology as an outpatient [id number] encounter performed with the patient on discharge day, as well as physical exam, summary of hospitalization course and postdischarge plan has been D/W the patient. D/W nurse D/W bottle caser Discharge medications reviewed and printed and signed, post discharge follow up visit with PCP and other specialist as well as Brief hospital course and discharge summary has been placed. Pt Condition on Discharge: Fair Discharge Disposition: Discharge Home Discharge Time: > 30 minutes Discharge Instructions DIET: Follow Instructions for: Heart Healthy Diet Speech Therapy-Diet Recommends: Other Activities you can perform: Weight Bearing as [place] Follow up Referrals: Neurology - 1 Week with Moose Griffin MD PCP Follow-up - 1 Week New Medications: Pyridostigmine (Pyridostigmine) 60 Mg Tab 120 MG NG Q6H for MG for 30 Days, #240 TAB Continued Medications: Azathioprine (Azathioprine) 50 Mg Tab 50 MG PO BID for Immunosuppression, #60 TAB 0 Refills Hazardous agent use appropriate precautions for handling and disposal. Fluticasone-Vilanterol Inh (Breo Ellipta Inh) 200-25 Mcg/Act Inh 1 PUFF INH DAILY, #1 INHALER 0 Refills Use daily at the same time. Prednisone (Prednisone) 10 Mg Tab 10 MG PO BID, TAB 0 Refills Varinder Pantoja MD Jun 20, 2017 14:54
== END 2017-06-17 19:40 | disposition home or self-care (01) ==
LOC: NEPE 12:21 → NEDA 18:12 → N07B 18:48
PROVIDERS: ADMIT Hospitalist; ATTEND Hospitalist
DX: R13.10 Dysphagia, unspecified (principal); G70.01 Myasthenia gravis with (acute) exacerbation; J44.9 Chronic obstructive pulmonary disease, unspecified; G89.29 Other chronic pain; R60.0 Localized edema; Z79.891 Long term (current) use of opiate analgesic; I87.2 Venous insufficiency (chronic) (peripheral); E11.9 Type 2 diabetes mellitus without complications; I50.9 Heart failure, unspecified; I11.0 Hypertensive heart disease with heart failure; R47.02 Dysphasia
CPT/HCPCS: 36430; 36514; 36556; 71020; 74000; 74230; 76937; 77001; 80048; 80053; 81001; 82607; 82948; 83880; 83921; 84425; 84439; 84443; 85025; 85027; 85384; 85610; 85730; 86965; 92526; 92610; 92611; 93306; 96361; 96365; 96366; 96367; 96368; 96372; 96375; 96376; 97110; 97116; 97162; 97166; 99285; C1752; G0378; G8987; G8988; G8996; G8997; G8998; J0610; J1644; J2405; J2543; J2920; J3480; J7030; J7050; J7500; J7512; P9045

== ENCOUNTER → 2017-06-06 | Outpatient (CLI) | payer OTHER, MEDICAID ==
[~2017-06-06] MED LIST: AZAT50 PO; CEPH500C3 PO; FENO160T2 PO; FLUT1INH INH; FLUT1INH7 INH; FURO40TA PO; LORTA5 PO; MELO7.5 PO; MEST60TA PO; METH40TA PO; MULT1TAB PO; PRED10 PO; PRED5TAB PO; PROT40TA PO; VITA-13 PO
--- NOTE | 2017-06-06 12:13 | RADRPT ---
EXAM DATE/TIME: 06/06/2017 11:48 [facility] COMPARISON: No previous studies available for comparison. INDICATIONS : Dysphagia. FLUORO TIME: 1.3 minutes IMAGE COUNT: 1 CONTRAST: Dose as prescribed by speech pathologist. MEDICAL HISTORY : Chronic obstructive pulmonary disease. Hypercholesterolemia. Hypertension. Myasthenia gravis SURGICAL HISTORY : Tonsillectomy. ENCOUNTER: Initial ACUITY: 4 - 6 days PAIN SCORE: 0/10 LOCATION: Left neck FINDINGS: A modified barium swallow was performed with speech pathology. Patient was given a variety of liquids to swallow. Moderate penetration and aspiration with thin and thick liquids. For a full detailed report, see report by the speech pathologist. CONCLUSION: For a full detailed report, see report by the speech pathologist. Zach Simeon MD FACR on June 06, 2017 at 12:11 Board Certified Radiologist. This report was verified electronically.
== END ==
LOC: HRAD 11:14
PROVIDERS: ATTEND Family Medicine
DX: R13.10 Dysphagia, unspecified (principal)
CPT/HCPCS: 74230; 92611; G8996; G8997; G8998